=== PATIENT | female | born 1985 | race Two or more races ===

== ENCOUNTER 2024-09-20 12:17 | Outpatient (OUT) | payer OTHER, SELFPAY ==
[2024-09-20 14:30] LABS: BOX Test Reference Lab UNITY; BOX Test Sent Out UNITY BOX
== END 2024-09-20 12:18 | disposition home or self-care (01) ==
LOC: LAB 12:25
PROVIDERS: PCP Nurse Practitioner Family; Visit Provider Midwife
DX: Z36.0 Encounter for antenatal screening for chromosomal anomalies (principal)
CPT/HCPCS: 36415

== ENCOUNTER 2025-02-18 12:46 | Outpatient (OUT) | payer OTHER, SELFPAY ==
[2025-02-18 12:56] VITALS: BP 137/85; PULSE 95
== END 2025-02-18 14:25 | disposition home or self-care (01) ==
LOC: FBCO 12:48 → FBC 12:49
PROVIDERS: PCP Nurse Practitioner Family; Visit Provider Midwife
DX: O16.3 Unspecified maternal hypertension, third trimester (principal)
CPT/HCPCS: 59025

== ENCOUNTER 2025-03-09 16:50 | Inpatient (IN) | payer OTHER, SELFPAY ==
[2025-03-09] VITALS (15 sets, daily range): BP systolic 132–160; BP diastolic 71–109; PULSE 86–99; TEMP 36.2–36.7
[2025-03-09 17:47] LABS: Hematocrit 39.1 % (36.0-48.0); Hemoglobin 13.7 g/dL (12.0-16.0); Mean Corpuscular HGB Conc 35.0 g/dL (29.9-35.2); Mean Corpuscular Hemoglobin 32.5 pg (26.7-34.0); Mean Corpuscular Volume 92.9 fL (81.0-99.0); Platelet Count 209 10^3/uL (150-450); Red Blood Count 4.21 10^6/uL (4.20-5.40); White Blood Count 11.0 10^3/uL (4.0-11.0)
[2025-03-09] MEDS: DINOPROSTONE 10 MG VAG INSERT.ER VAGINAL (18:15)
[2025-03-09] MEDS: CALCIUM CARBONATE 500 MG (200MG ELEMENTAL) TAB CHEW PO (18:47)
[2025-03-09] MEDS: LABETALOL HCL 100 MG TABLET 200 MG PO (19:01)
[2025-03-09 19:36] LABS: Cannabinoid Screen Urine NEGATIVE (NEGATIVE); Methamphetamines Screen Urine NEGATIVE (NEGATIVE); Tricyclic Antidepressant Urine NEGATIVE (NEGATIVE)
[2025-03-09 19:40] LABS: Protein Creatinine Ratio Urine 0.06; Total Protein Urine Random <6.0 mg/dL (<=11.9)
[2025-03-09 21:03] LABS: Alanine Aminotransferase 16 U/L (14-59); Albumin Globulin Ratio 0.6; Albumin Level 2.3 g/dL (3.4-5.0); Alkaline Phosphatase 176 U/L (46-116); Anion Gap 12.6; Aspartate Amino Transferase 17 U/L (15-37); Blood Urea Nitrogen 6.0 mg/dL (7.0-18.0); Calcium 9.5 mg/dL (8.5-10.1); Carbon Dioxide 24.0 mmol/L (21.0-32.0); Chloride 104 mmol/L (98-107); Estimated GFR (African America >60 (>=60 mL/min/1.73m^2); Estimated GFR (Non-African Ame >60 (>=60 mL/min/1.73m^2); Globulin 4.1 g/dL; Glucose 92 mg/dL (74-106); Potassium 3.6 mmol/L (3.5-5.1); Sodium 137 mmol/L (136-145); Total Protein 6.4 g/dL (6.4-8.2)
[2025-03-09 21:04] LABS: Uric Acid 6.1 mg/dL (2.6-6.0)
[2025-03-09 21:08] LABS: Partial Thromboplastin Time 28.2 sec (22.3-36.2); Prothrombin Time 9.8 sec (9.0-11.6)
[2025-03-09 21:11] LABS: Fibrinogen 563 mg/dL (200-400); INR <0.93
[2025-03-09] MEDS: ZOLPIDEM TARTRATE 5 MG TABLET PO (22:17)
[2025-03-10] VITALS (37 sets, daily range): BP systolic 118–156; BP diastolic 68–102; PULSE 74–105; TEMP 36.1–37
[2025-03-10] MEDS: LABETALOL HCL 100 MG TABLET 200 MG PO ×3 (06:06→21:31)
[2025-03-10] MEDS: MISOPROSTOL 100 MCG TABLET 25 MCG VAGINAL ×3 (07:42→13:41)
[2025-03-10] MEDS: CLINDAMYCIN PHOSPHATE/D5W 900 MG/50 ML PREMIX 100 MG IV ×2 (12:50→21:08)
--- NOTE | 2025-03-10 13:06 | PC.NURSE ---
fhr 140s audibly while RN handholds us as pt rocks in chair, states feeling more of the cramping, rates 3-4
--- NOTE | 2025-03-10 19:22 | PC.NURSE ---
1825 Laureen Landon CNM calls in, plan of care to start pitocin at 1 mcg/min and increase by 1 mcg hourly after discussing with Dr Mc
[2025-03-10] MEDS: OXYTOCIN/0.9 % SODIUM CHLORIDE 10 UNITS/500 ML PLAST..BAG 3 UNIT IV (19:30)
[2025-03-11] VITALS (56 sets, daily range): BP systolic 89–181; BP diastolic 51–105; PULSE 61–139; TEMP 36.6–36.8
[2025-03-11] MEDS: CLINDAMYCIN PHOSPHATE/D5W 900 MG/50 ML PREMIX 100 MG IV ×2 (04:53→13:51)
[2025-03-11] MEDS: LABETALOL HCL 100 MG TABLET 200 MG PO ×3 (05:59→22:13)
--- NOTE | 2025-03-11 09:10 | PM.OBHP ---
OB - H&P: HPI History of Present Illness Chief complaint: INDUCE : 1 Para: 0 Gestational age based on last menstrual period: 37.2 Indications for induction: maternal hypertension (chronic hypertension ) History of Present Dating criteria: LMP confirmed by 1st trimester US care: good care Ultrasounds: normal 1st trimester US and normal mid trimester US complications comment: chronic hypertension Labs Blood type: O (+) positive Rubella: immune RPR/VDLR: nonreactive GBS status: positive HBsAG: negative Review of Systems ROS Status of ROS: 10 or more systems reviewed and unremarkable except as noted in history and below PFSH PFSH Social History Highest level of school completed/degree received: Master's degree Little interest or pleasure in doing things: not at all Feeling down, depressed, or hopeless: not at all Meds Home Medications and Allergies Home Medications ?Medication ?Instructions ?Recorded ?Confirmed ?Type labetalol 100 mg tablet 100 mg PO DAILY 03/09/25 03/09/25 History Allergies Allergy/AdvReac Type Severity Reaction Status Date / Time bacitracin (From Allergy Rash Verified 03/09/25 22:31 Polysporin(bacitracin base)) cephalexin (From Keflex) Allergy Rash Verified 03/09/25 22:31 colloidal oatmeal Allergy Rash Verified 03/09/25 22:31 hydrocortisone (From Allergy Rash Verified 03/09/25 22:31 Preparation H Hydrocortisone) Penicillins Allergy Rash Verified 03/09/25 22:31 polymyxin B (From Allergy Rash Verified 03/09/25 22:31 Polysporin(bacitracin base)) sulfamethoxazole (From Allergy Rash Verified 03/09/25 22:31 Bactrim) trimethoprim (From Bactrim) Allergy Rash Verified 03/09/25 22:31 Exam Constitutional Vital Signs, click to edit/add: Last Vital Signs Temp 98.6 F 03/10/25 19:30 Pulse 74 03/11/25 08:42 Resp 16 03/10/25 07:40 BP 138/71 03/11/25 08:42 O2 Del Method Room Air 03/09/25 18:25 Documenting provider has reviewed patient's vital signs: yes Common normals: no apparent distress General appearance: cooperative and comfortable Orientation/consciousness: Yes awake, Yes oriented to person, Yes oriented to place and Yes oriented to time HENMT Common normals: normocephalic Eye Common normals: EOMs intact bilaterally Neck & C-Spine Common normals: full ROM General: normal visual inspection Lymph Lymphatic: no lymphadenopathy noted Respiratory Common normals: normal respiratory effort, no retractions, no use of accessory muscles and clear to auscultation bilaterally Effort & inspection: able to speak in complete sentences Auscultation: clear to auscultation bilaterally Cardio Common normals: regular rate and regular rhythm Rate: regular rate Rhythm: regular rhythm GI Common normals: Normal to inspection, nondistended, normoactive bowel sounds present Inspection: normal to inspection Palpation: soft Back & Pelvis Common normals: no CVA tenderness Extremity Common normals: normal to inspection and full ROM Neuro Common normals: oriented x3 Sensorium/orientation: awake, alert, oriented to person, oriented to place and oriented to time Psych Common normals: mental status grossly normal, thought process normal, cooperative, affect normal, speech normal, activity/motor behavior normal, denies hallucinations, denies homicidal ideation and denies suicidal ideation Attitude: calm Activity/motor behavior: appropriate eye contact Speech: normal speech Thought process: normal thought process Thought content: normal thought content Attention/concentration: attention grossly intact Judgement: judgment good OB - A/P Assessment and Plan (1) Term delivered: (2) Chronic hypertension affecting : (3) Group B streptococcal bacteriuria: Plan . medical induction for chronic hypertension, cervidil and cytotec as needed Additional Plan Induction method: other (cytotec ) Plan: expectant management
[2025-03-11] MEDS: ROPIVACAINE HCL/PF 400 MG/200 ML PREMIX 6 MG EPIDURAL (10:55)
[2025-03-11] MEDS: OXYTOCIN/0.9 % SODIUM CHLORIDE 20 UNITS/1,000 ML PLAST..BAG 125 UNIT IV (16:07)
[2025-03-11] MEDS: LIDOCAINE VISCOUS 2% 15 ML SOLUTION 5 ML TOPICAL (16:07)
[2025-03-11] MEDS: LIDOCAINE HCL 1% 200 MG/20 ML MDV INJ (16:07)
--- NOTE | 2025-03-11 16:11 | PM.OBPRCVD ---
Procedure Procedure: with first degree repair Induction method: other (cervidil ) Delivery augmentation: rupture of membranes and pitocin Delivery monitor: external FHT Route of delivery: Episiotomy Description: none L&D Laceration Description: perineal - 1st degree Delivery repair: Vicryl Estimated blood loss (mL): 150 Anesthesia type: Epidural Disposition: no change Infant Delivery date: 03/11/25 Gender: female presentation: vertex Placental delivery description: Spontaneous heart rate - 1 minute: 100 bpm or Greater respiratory effort - 1 minute: Slow Respiration/Weak Cry muscle tone - 1 minute: Active Movement reflex response - 1 minute: Minimal Response color - 1 minute: Bluish Hands or Feet total score - 1 minute: 7 heart rate - 5 minute: 100 bpm or Greater respiratory effort - 5 minute: Spontaneous/Strong Cry muscle tone - 5 minute: Active Movement reflex response - 5 minute: Prompt Response color - 5 minute: Bluish Hands or Feet total score - 5 minute: 9
[2025-03-11] MEDS: IBUPROFEN 400 MG TABLET 800 MG PO (17:37)
[2025-03-11] MEDS: GLYCERIN/WITCH HAZEL PADS 1 PAD TOPICAL (20:53)
[2025-03-11] MEDS: BENZOCAINE/MENTHOL 85 GRAM SPRAY BOTTLE 1 APPLIC TOPICAL (20:53)
[2025-03-12] VITALS (7 sets, daily range): BP systolic 130–166; BP diastolic 79–107; PULSE 72–91; TEMP 36.4–36.8
[2025-03-12] MEDS: IBUPROFEN 400 MG TABLET 800 MG PO ×3 (03:06→18:02)
[2025-03-12] MEDS: LABETALOL HCL 100 MG TABLET 200 MG PO ×3 (05:54→22:42)
[2025-03-12] MEDS: DOCUSATE SODIUM 100 MG CAPSULE PO ×2 (08:20→22:42)
--- NOTE | 2025-03-12 14:27 | PM.OBPN ---
OB - PN: Subj Subjective Patient comments: no complaints, pain well controlled, tolerating diet and flatus present Coward status: doing well and other (having trouble with - not latching well) Exam Constitutional Vital Signs, click to edit/add: Last Vital Signs Temp 98.3 F 03/12/25 07:55 Pulse 82 03/12/25 07:56 Resp 17 03/12/25 08:02 BP 130/79 03/12/25 07:56 O2 Del Method Room Air 03/12/25 08:02 Documenting provider has reviewed patient's vital signs: yes Common normals: no apparent distress, oriented x3, healthy appearing, alert and well nourished General appearance: cooperative, comfortable, well kempt and well developed Nutritional appearance: obese Orientation/consciousness: Yes awake HENMT Common normals: normocephalic Eye Common normals: EOMs intact bilaterally Respiratory Common normals: normal respiratory effort and no retractions Cardio Common normals: regular rate Back & Pelvis Common normals: no CVA tenderness Pelvis: other (fundus firm and non-tender below umbilicus) Extremity Common normals: no calf tenderness General: edema (1+ pedal edema to mid anderson) Neuro Common normals: oriented x3 Sensorium/orientation: awake and alert Psych Common normals: mental status grossly normal Attitude: calm and engaged Urinary Catheter Management Urinary Catheter Management Urethral: Cath placed during this visit: yes, but has since been removed by the nurse Insertion date: 03/11/25 Insertion time: 11:10 Removal date: 03/11/25 Removal time: 14:30 OB - PN: A/P Assessment and Plan (1) Term delivered: Assessment and Plan: working on home tomorrow (2) Chronic hypertension affecting : Assessment and Plan: continue labetalol (3) Group B streptococcal bacteriuria: Assessment and Plan: treated in labor Time Spent with Patient Time: Total time spent is greater than 50% in coordination of care (as documented) at patient's floor/unit and/or counseling patient: Total time spent with greater than 50% in coordination of care (as documented) at patient's floor/unit and/or counseling patient: 25 - 35 minutes
[2025-03-13] MEDS: IBUPROFEN 400 MG TABLET 800 MG PO ×2 (01:37→10:45)
[2025-03-13] MEDS: LABETALOL HCL 100 MG TABLET 200 MG PO (07:14)
[2025-03-13 09:26] VITALS: BP 162/83; PULSE 77
[2025-03-13 10:38] VITALS: BP 122/81; PULSE 75; TEMP 36.7
[2025-03-13] MEDS: DOCUSATE SODIUM 100 MG CAPSULE PO (10:44)
--- NOTE | 2025-03-13 12:25 | P.DS_ITS ---
DS: Providers Provider Date of admission: 03/09/25 16:50 Primary care physician: Zulema Hall NP Admitting clinician: Chiki Beltran Attending physician on admission: Chiki Beltran Attending physician on discharge: LEXI GUERIN Discharging clinician: LEXI GUERIN Anticipated date of discharge: 03/13/25 DS: Diagnosis Discharge Diagnosis (1) Term delivered: Assessment and plan: delivered (2) Chronic hypertension affecting : Assessment and plan: Labetalol 200 mg tid RTC for apt in 1 week (3) Group B streptococcal bacteriuria: Assessment and plan: treated in labor OB - DS: Summary Hospital Course Hospital Course: Patient was induced and delivered via over a first degree laceration. Her BP needed an increase in her labetalol up to 200 mg tid prior to discharge. Baby was having difficulty latching on but was drinking out of a bottle at the time of discharge. Peripartum Data - Vaginal Delivery Laceration description: perineal - 1st degree Episiotomy Description: none Procedures: 39yo G1 now P1 with chronic hypertension in on labetalol was admitted and induced and delivered via over a first degree laceration which was repaired. Complications complications: perineal laceration Delivery method: spontaneous vaginal delivery Gender: female Discharge plan: home Status at Discharge Functional status at discharge: independent ambulation Overall status at discharge: patient is progressing back to baseline Time Spent with Patient Time attestation: Total time spent providing and/or coordinating discharge services: Time spent: less than 30 minutes Exam Constitutional Vital Signs, click to edit/add: Last Vital Signs Temp 98.1 F 03/13/25 10:38 Pulse 75 03/13/25 10:38 Resp 16 03/13/25 10:38 BP 122/81 03/13/25 10:38 O2 Del Method Room Air 03/13/25 10:38 Documenting provider has reviewed patient's vital signs: yes Common normals: no apparent distress, oriented x3, healthy appearing, alert and well nourished General appearance: cooperative, comfortable, well kempt and well developed Nutritional appearance: obese HENMT Common normals: normocephalic Eye Common normals: EOMs intact bilaterally General eye: normal appearance of both eyes Respiratory Common normals: normal respiratory effort and no retractions Cardio Common normals: regular rate GI Palpation: soft Common normals: no CVA tenderness Uterus palpation: other (fundus firm and non-tender below umbilicus) Extremity Common normals: no calf tenderness and no pedal edema Neuro Speech: speech normal Psych Common normals: thought process normal Appearance: grossly normal and well kempt Attitude: calm and engaged Activity/motor behavior: appropriate eye contact Speech: normal speech Attention/concentration: attention grossly intact Discharge Plan Discharge Disposition: Home, Self-Care Discharge Medications: New ibuprofen 400 mg Tablet 800 mg PO Q8H Qty: 50 0RF Rx Instructions: 2 tablets every 8 hours as needed for pain labetalol 100 mg Tablet 200 mg PO TID Qty: 60 11RF Discontinued labetalol 100 mg tablet 100 mg PO DAILY Activity: increase activity as tolerated Diet: regular diet Print Language: Marshallese Forms: Portal Instructions Discharge location: to home
== END 2025-03-13 13:35 | disposition home or self-care (01) | DRG 807 ==
PROVIDERS: Admitting Provider Midwife; PCP Nurse Practitioner Family; Visit Provider Obstetrics & Gynecology
DX: O10.02 Pre-existing essential hypertension complicating childbirth (principal); Z37.0 Single live birth; O70.0 First degree perineal laceration during delivery; Z3A.37 37 weeks gestation of pregnancy; Z79.899 Other long term (current) drug therapy; O99.214 Obesity complicating childbirth; E66.01 Morbid (severe) obesity due to excess calories; O99.824 Streptococcus B carrier state complicating childbirth
CPT/HCPCS: 36415; 51702; 59050; 59410; 80053; 80307; 82570; 84156; 84550; 85027; 85384; 85610; 85730; 86850; 86900; 86901; J0736; J2300; J2405; J2795

== ENCOUNTER 2025-03-18 08:41 | Outpatient (OUT) | payer OTHER, SELFPAY ==
--- OUTSIDE RECORDS SUMMARY | 2025-03-04 13:30 | XMS_ITS | Encounter Summary ---
Author Organization [facility] Address [address] [facility] [place] [address] Care Team Providers Care Forest Pathology Associate Professor Name Role Phone Stacey Pulido MD Primary Care Provider [phone] Zulema Hall NP Unavailable [phone] Encounter Details DateTypeDepartmentCare Team (Latest Contact Info)Blwydeilnmx13/21/2025 2:30 PM EDTRoutine [facility] [address] [place] [address] Kaitlin Landon, ADAMARIS [address] [place], [place] [id number] Social History Tobacco UseTypesPacks/DayYears UsedDateSmoking Tobacco: NeverSmokeless Tobacco: NeverAlcohol UseStandard Drinks/WeekCommentsNot Currently0 (1 standard drink = 0.6 oz pure alcohol)1 cups of soda per [id number] Health LiteracyAnswerDate RecordedHow often do you need to have someone help you when you read instructions, pamphlets, or other written material from your doctor or pharmacy? Never05/13/2024Humiliation, Afraid, Rape, and Kick questionnaireAnswerDate RecordedWithin the last year, have you been afraid of your partner or ex-partner?No11/10/2022Within the last year, have you been humiliated or emotionally abused in other ways by your partner or ex-partner?No11/10/2022 Within the last year, have you been kicked, hit, slapped, or otherwise physically hurt by your partner or ex-partner?No11/10/2022Within the last year, have you been raped or forced to have any kind of sexual activity by your part ner or ex-partner?No11/10/2022Social Connection and Isolation PanelAnswerDate RecordedIn a typical week, how many times do you talk on the phone with family, friends, or neighbors?More than three times a week05/13/2024How often do you get together with friends or relatives?Once a week05/13/2024How often do you attend shinto or taoist services?More than 4 times per year05/13/2024o you belong to any clubs or organizations such as shinto groups, unions, fraternal or athletic groups, or school groups?No05/13/2024How often do you attend meetings of the clubs or organizations you belong to?Never05/13/2024re you , , , , never , or living with a partner? 05/13/2024UDIT-CAnswerDate RecordedQ1: How often do you have a drink containing alcohol?2-4 times a month05/13/2024Q2: How many drinks containing alcohol do you have on a typical day when you are drinking?3 or Q3: How often do you have six or more drinks on one occasion?Less than zijupfp7605/13/2024Overall Financial Resource Strain (CARDIA)AnswerDate RecordedHow hard is it for you to pay for the very basics like food, housing, medical care, and heating?Not very hard05/13/2024HQ-2AnswerDate RecordedPatient Health Questionnaire-2 Score0 11/11/2024[facility] [place] of Occupational Health - Occupational Stress QuestionnaireAnswerDate RecordedDo you feel stress - tense, restless, nervous, or anxious, or unable to sleep at night because yourmind is troubled all the time - these days?Only a tvhcrq2605/13/2024Exercise Vital SignAnswerDate Recorded On average, how many days per week do you engage in moderate to strenuous exercise (like a brisk walk)?1 day05/13/2024On average, how many minutes do you engage in exercise at this level?30 min05/13/2024Hunger Vital SignAnswerDate RecordedWithin the past 12 months, you worried that your food would run out before you got the money to buymore.Never true05/13/2024Within the past 12 months, the food you bought just didn't last and you didn't have money to get more.Never true05/13/2024RAPARE - TransportationAnswerDate RecordedIn the past 12 months, has lack of transportation kept you from medical appointments or from getting medications?No05/13/2024In the past 12 months, has lack of transportation kept you from meetings, work, or from getting things needed for daily living?No05/13/2024Housing Stability Vital SignAnswerDate RecordedIn the last 12 months, was there a time when you were not able to pay the mortgage or rent on time?No11/10/2022In the last 12 months, how many places have you lived?1 11/10/2022In the last 12 months, was there a time when you did not have a steady place to sleep or slept in [facility] (including now)?No11/10/2022Housing Stability Vital SignAnswerDate RecordedIn the last 12 months, was there a time when you were not able to pay the mortgage or rent on time?No05/13/2024In the past 12 months, how many times have you moved where you were living? At any time in the past 12 months, were you homeless or living in a retirement (including now)?No05/13/2024CommentsYesSex and Gender InformationValue Date RecordedSex Assigned at WgheeZlukpi01/23/2023 8:35 AM EDTLegal SexFemale 07/27/2022 6:45 PM EDTGender HjakbhqjHjfbfx07/23/2023 8:35 AM EDTSexual OrientationNot on filedocumented as of this encounter Last Filed Vital Signs Vital SignReadingTime TakenCommentsBlood Nxeninqx042/69267/ 2:51 PM EDT recheck 130/82Pulse--Temperature--Respiratory Rate--Oxygen Saturation--Inhaled Oxygen Concentration--Qzmoac932 kg (246 lb)03/04/2025 2:51 PM EDTHeight--Body Mass Index40.011 4:23 PM ESTdocumented in this encounter Plan of Treatment DateTypeDepartmentCare Team (Latest Contact Info)Sczuncckjxb90/30/2025 12:00 PM ESTOffice Visit [facility] Medicine [address] [facility] [place] [address] Zulema Hall NP [address] [facility] [place] [address] documented as of this encounter Visit Diagnoses Not on filedocumented in this encounter Care Teams Team MemberRelationshipSpecialtyStart DateEnd Date Stacey Pulido MD [address] [facility] [place], [place] [phone] PCP - GeneralFamily Medicine11/10/22 Zulema Hall NP [address] [facility] [place], [place] [phone] Nurse PractitionerFamily Medicine11/10/22documented as of this encounter
--- OUTSIDE RECORDS SUMMARY | 2025-03-06 14:30 | XMS_ITS | Encounter Summary ---
Author Organization [facility] Address [address] [facility] [place] [address] Care Team Providers Care Surveyor Mine Name Role Phone Stacey Pulido MD Primary Care Provider [phone] Zulema Hall NP Unavailable [phone] Encounter Details DateTypeDepartmentCare Team (Latest Contact Info)Hhrxtnrtuqn09/23/2025 3:30 PM EDTRoutine [facility] [address] [place] [address] Kaitlin Landon, MARILEE [address] [place], [place] [phone] NST (non-stress test) reactive ([facility]) (Primary Dx); Benign hypertension; Encounter for care of first , third trimester ([facility]) Social History Tobacco UseTypesPacks/DayYears UsedDateSmoking Tobacco: NeverSmokeless Tobacco: NeverAlcohol UseStandard Drinks/WeekCommentsNot Currently0 (1 standard drink = 0.6 oz pure alcohol)1 cups of soda per [id number] Health LiteracyAnswerDate RecordedHow often do you need [...] relatives?Once a week05/13/2024How often do you attend religious or judaism services?More than 4 times per year05/13/2024o you belong to any clubs or organizations such as religious groups, unions, fraCodealike or athletic groups, or school groups?No05/13/2024How often [...] or more drinks on one occasion?Less than aflvdsm1805/13/2024Overall Financial Resource Strain (CARDIA)AnswerDate RecordedHow hard is it for you to pay for the very basics like food, housing, medical care, and heating?Not very hard05/13/2024HQ-2AnswerDate RecordedPatient Health Questionnaire-2 Score0 11/11/2024[facility] [place] of Occupational Health - Occupational Stress QuestionnaireAnswerDate RecordedDo you feel stress - tense, restless, nervous, or anxious, or unable to sleep at night because yourmind is troubled all the time - these days?Only a dbrtju9205/13/2024Exercise Vital SignAnswerDate Recorded On average, how many [...] steady place to sleep or slept in [facility] (including now)?No11/10/2022Housing Stability Vital SignAnswerDate RecordedIn the [...] and Gender InformationValue Date RecordedSex Assigned at DweclIpnwdh34/23/2023 8:35 AM EDTLegal SexFemale 07/27/2022 6:45 PM EDTGender UpitygvsLhxleh97/23/2023 8:35 AM EDTSexual OrientationNot on filedocumented as of this encounter Last Filed Vital Signs Vital SignReadingTime TakenCommentsBlood Muqqnfla319/9010 3:35 PM EDT Pulse--Temperature--Respiratory Rate--Oxygen Saturation--Inhaled Oxygen Concentration--Ookiex241 kg (252 lb)03/06/2025 3:35 PM EDTHeight--Body Mass Index40.9805/13/2024 4:23 PM ESTdocumented in this encounter Progress Notes * Kaitlin Landon CNM - 03/06/2025 3:30 PM EDT Subjective No chief complaint on file. Ritu Tavarez is a 39 y.o. at 36w4d with a working estimated date of delivery of 03/30/2025, by Last Menstrual Period who presents for a routine visit. She denies vaginal bleeding, leakage of fluid, decreased movements, or contractions. OB History Para Term AB Living 1 0 0 0 0 0 SAB IAB Ectopic Multiple Live Births 0 0 0 0 0 # Outcome Date GA Lbr Stanislaw/2nd Weight Sex Type Anes PTL Lv 1 Current Her is complicated by: AMA Objective Physical Exam Weight: 252 lb Expected Total Weight Gain: 11 lb-19 lb Pregravid BMI: 39.03 BP: 138/90 Urine protein-negative Urine glucose-negative Assessment/Plan Diagnoses and all orders for this visit: NST (non-stress test) reactive ([facility]) Benign hypertension Encounter for care of first , third trimester ([facility]) Continue vitamin. Labs reviewed. GBS taken. Expected mode of delivery Follow up in 1 week for a routine visit. documented in this encounter Plan of Treatment DateTypeDepartmentCare Team (Latest Contact Info)Msrrgvmnlnz48/30/2025 12:00 PM ESTOffice Visit [facility] [place] [facility] [address] [place] [phone] Zulema Hall NP [address] [place] [address] documented as of this encounter Visit Diagnoses Diagnosis NST (non-stress test) reactive ([facility])- Primary state, incidental Benign hypertension Essential hypertension, benign Encounter for care of first , third trimester ([facility]) documented in this encounter Care Teams Team MemberRelationshipSpecialtyStart DateEnd Date Stacey Pulido MD [address] [place], [place] [phone] PCP - GeneralFamily Medicine11/10/22 Zulema Hall NP [address] [place], [place] [phone] Nurse PractitionerFamily Medicine11/10/22documented as of this encounter
--- OUTSIDE RECORDS SUMMARY | 2025-03-07 13:30 | XMS_ITS | Encounter Summary ---
Author Organization [facility] Address [address] [place] [address] Care Team Providers Care Kettle Chipper Name Role Phone Stacey Pulido MD Primary Care Provider [phone] Zulema Hall ROSE GROWER Unavailable [phone] Encounter Details DateTypeDepartmentCare Team (Latest Contact Info)Wjzbhsxtepn10/24/2025 2:30 PM EDTAncillary Procedure [facility] [address] [place] [address] Benign hypertension; Advanced maternal age, 1st , third trimester ([facility]) Social History Tobacco UseTypesPacks/DayYears UsedDateSmoking Tobacco: NeverSmokeless Tobacco: NeverAlcohol UseStandard Drinks/WeekCommentsNot Currently0 (1 standard drink = 0.6 oz pure alcohol)1 cups of soda per [id number] Health LiteracyAnswerDate RecordedHow often do you need [...] relatives?Once a week05/13/2024How often do you attend hindu or taoist services?More than 4 times per year05/13/2024o you belong to any clubs or organizations such as hindu groups, unions, fraPersonalis or athletic groups, or school groups?No05/13/2024How often [...] or more drinks on one occasion?Less than iyvktcl1905/13/2024Overall Financial Resource Strain (CARDIA)AnswerDate RecordedHow hard is it for you to pay for the very basics like food, housing, medical care, and heating?Not very hard05/13/2024HQ-2AnswerDate RecordedPatient Health Questionnaire-2 Score0 11/11/2024[facility] [place] of Occupational Health - Occupational Stress QuestionnaireAnswerDate RecordedDo you feel stress - tense, restless, nervous, or anxious, or unable to sleep at night because yourmind is troubled all the time - these days?Only a tfemyc8905/13/2024Exercise Vital SignAnswerDate Recorded On average, how many [...] steady place to sleep or slept in [facility] (including now)?No11/10/2022Housing Stability Vital SignAnswerDate RecordedIn the last 12 months, was there a time when you were not able to pay the mortgage or rent on time?No05/13/2024In the past 12 months, how many times have you moved where you were living? At any time in the past 12 months, were you homeless or living in a correction (including now)?No05/13/2024CommentsYesSex and Gender InformationValue Date RecordedSex Assigned at LgdxpUxwlhj37/23/2023 8:35 AM EDTLegal SexFemale 07/27/2022 6:45 PM EDTGender FyugqyukLtewkk33/23/2023 8:35 AM EDTSexual OrientationNot on filedocumented as of this encounter Plan of Treatment DateTypeDepartmentCare Team (Latest Contact Info)Rdvybxqtaso54/30/2025 12:00 PM ESTOffice Visit [facility] [address] [place] [address] Zulema Hall, ROSS [address] [place] [address] documented as of this encounter Procedures Procedure NamePriorityDate/TimeAssociated DiagnosisCommentsUS OB FOLLOW UP TRANSABDOMINAL RMCZKIQQFtfjgda61/24/2025 3:15 PM EDT Benign hypertension Advanced maternal age, 1st , third trimester ([facility] [facility]) documented in this encounter Results * US OB follow up transabdominal approach (03/07/2025 3:15 PM EDT)Anatomical RegionLateralityModalityBodyUltrasoundSpecimen (Source)Anatomical Location / LateralityCollection Method / VolumeCollection TimeReceived Time03/07/2025 4:37 PM EDT Impressions 03/10/2025 7:45 AM EDT Single, live intrauterine , current sonographic age of 37 weeks and 0 days, with an estimated date of delivery of March 28, 2025 (prior BEN March 25, 2025) * ??Estimated Weight (g) by Percentile is based upon an accurate estimated age based onlast menstrual period. ?? TRANSCRIBED BY: ? ELECTRONICALLY SIGNED BY: Francois Hirsch MD Narrative 03/10/2025 7:45 AM EDT FINDINGS: Comparison August 22, 2024. A single, live intrauterine is present with normal cardiac rate of 151 beats per minute. Normal activity and amniotic fluid volume. Amniotic fluid index is 15 cm. ??Morphology is grossly normal. The cervix is long and closed, 5.7 cm. ??The placenta is posterior, not associatedwith the cervical os. ??The current sonographic age is ??weeks and ??days, based on the following measurements: ?BPD ? 9.1 cm (36 weeks, 5 days) ?Head Circumference ?32.8 cm (37 weeks, 2 days) ?Abdominal Circumference ?32.7 cm (36 weeks, 5 days) ?Femur Length ?7.2 cm (37 weeks, 0 days) ?Presentation ? Cephalic ?Placenta ? Posterior Grade II ? These measurements result in an estimated date of delivery of March 28, 2025. ??The current estimated weight is 3033 grams (6 pounds, 11 ounces). ?? Procedure Note Francois Hirsch MD - 03/10/2025 FINDINGS: Comparison August 22, 2024. A single, live intrauterine is present with normal cardiacrate of 151 beats per minute. Normal activity and amniotic fluidvolume. Amniotic fluid index is 15 cm. Morphology is grossly normal. Thecervix is long and closed, 5.7 cm. The placenta is posterior, notassociated with the cervical os. The current sonographic age is weeksand days, based on the following measurements: BPD 9.1 cm (36 weeks, 5 days) Head Circumference 32.8 cm (37 weeks, 2 days) Abdominal Circumference 32.7 cm (36 weeks, 5 days) Femur Length 7.2 cm (37 weeks, 0 days) Presentation Cephalic Placenta Posterior GradeII These measurements result in an estimated date of delivery of March. The current estimated weight is 3033 grams (6 pounds, 11ounces). IMPRESSION: Single, live intrauterine , current sonographic age of 37 weeksand 0 days, with an estimated date of delivery of March 28, 2025 (priorEDD March 25, 2025) * Estimated Weight (g) by Percentile is based upon an accurateestimated age based on last menstrual period. TRANSCRIBED BY: ELECTRONICALLY SIGNED BY: Francois Hirsch MD Authorizing ProviderResult TypeResult StatusValefrank Landon [facility] US PROCEDURESFinal Result documented in this encounter Visit Diagnoses Diagnosis Benign hypertension Essential hypertension, benign Advanced maternal age, 1st , third trimester ([facility]) documented in this encounter Care Teams Team MemberRelationshipSpecialtyStart DateEnd Stacey Pulido MD [address] [place], [place] [phone] [facility] - [facility]11/10/22 Zulema Hall NP [address] [place], [place] [phone] Nurse PractitionerB[facility] Medicine11/10/22documented as of this encounter
--- OUTSIDE RECORDS SUMMARY | 2025-03-18 08:49 | XMS_ITS | Encounter Summary ---
Author Organization [facility] Address [address] [facility] [place] [address] Care Team Providers Care Cook Candy Name Role Phone Stacey Pulido MD Primary Care Provider [phone] Zulema Hall NP Unavailable [phone] Encounter Details DateTypeDepartmentCare Team (Latest Contact Info)Poabbkvityu65/21/2025Bamboo flowsheet [facility] [address] [place] [address] Kaitlin Landon, CNM [address] [place], [place] [id number] Social History Tobacco UseTypesPacks/DayYears UsedDateSmoking Tobacco: NeverSmokeless Tobacco: NeverAlcohol UseStandard Drinks/WeekCommentsNot Currently0 (1 standard drink = 0.6 oz pure alcohol)1 cups of soda per [id number] Health LiteracyAnswerDate RecordedHow often do you need [...] relatives?Once a week05/13/2024How often do you attend mandaen or latter day services?More than 4 times per year05/13/2024o you belong to any clubs or organizations such as mandaen groups, unions, fraternal or athletic groups, or [...] or more drinks on one occasion?Less than vpwjxnc0805/13/2024Overall Financial Resource Strain (CARDIA)AnswerDate RecordedHow hard is it for you to pay for the very basics like food, housing, medical care, and heating?Not very hard05/13/2024HQ-2AnswerDate RecordedPatient Health Questionnaire-2 Score0 11/11/2024[facility] [place] [facility] - Occupational Stress QuestionnaireAnswerDate RecordedDo you feel stress - tense, restless, nervous, or anxious, or unable to sleep at night because yourmind is troubled all the time - these days?Only a demiqj2105/13/2024Exercise Vital SignAnswerDate Recorded On average, how many [...] steady place to sleep or slept in [facility] (including now)?No11/10/2022Housing Stability Vital SignAnswerDate RecordedIn the last 12 months, was there a time when you were not able to pay the mortgage or rent on time?No05/13/2024In the past 12 months, how many times have you moved where you were living? At any time in the past 12 months, were you homeless or living in a senior care (including now)?No05/13/2024CommentsYesSex and Gender InformationValue Date RecordedSex Assigned at DlfkwCaacmc57/23/2023 8:35 AM EDTLegal SexFemale 07/27/2022 6:45 PM EDTGender NtsoiykvAlespl39/23/2023 8:35 AM EDTSexual OrientationNot on filedocumented as of this encounter Plan of Treatment DateTypeDepartmentCare Team (Latest Contact Info)Xlbbksfsgqy79/30/2025 12:00 PM ESTOffice Visit [facility] [address] [place] [address] Zulema Hall NP [address] [facility] [place] [address] documented as of this encounter Visit Diagnoses Not on filedocumented in this encounter Care Teams Team MemberRelationshipSpecialtyStart DateEnd Date Stacey Pulido MD [address] [place], [place] [id number] PCP - GeneralFamily Medicine11/10/22 Zulema Hall NP [address] [place], [place] [id number] Nurse PractitionerFamily Medicine11/10/22documented as of this encounter
--- OUTSIDE RECORDS SUMMARY | 2025-03-18 08:49 | XMS_ITS | Encounter Summary ---
Author Organization [facility] Healthcare Address [address] [place] [address] Care Team Providers Care Oracle Ascp Consultant Name Role Phone Stacey Pulido MD Primary Care Provider Zulema Hall NP Unavailable [phone] Encounter Details DateTypeDepartmentCare Team (Latest Contact Info)Ezhgynpkyhh68/31/2025Patient Outreach [facility] [address] [place] [id number] Leonela Kirkland, SLOANE [address] [place] [address] Social History Tobacco UseTypesPacks/DayYears UsedDateSmoking Tobacco: NeverSmokeless Tobacco: NeverAlcohol UseStandard Drinks/WeekCommentsNot Currently0 (1 standard drink = 0.6 oz pure alcohol)1 cups of soda per [id number] Health LiteracyAnswerDate RecordedHow often do you need [...] relatives?Once a week05/13/2024How often do you attend anabaptist or judaism services?More than 4 times per year05/13/2024o you belong to any clubs or organizations such as anabaptist groups, unions, fraImcompany or athletic groups, or school groups?No05/13/2024How often [...] or more drinks on one occasion?Less than sftibom5605/13/2024Overall Financial Resource Strain (CARDIA)AnswerDate RecordedHow hard is it for you to pay for the very basics like food, housing, medical care, and heating?Not very hard05/13/2024HQ-2AnswerDate RecordedPatient Health Questionnaire-2 Score0 03/14/2025[facility] [place] [facility] - Occupational Stress QuestionnaireAnswerDate RecordedDo you feel stress - tense, restless, nervous, or anxious, or unable to sleep at night because yourmind is troubled all the time - these days?Only a knnwwo6405/13/2024Exercise Vital SignAnswerDate Recorded On average, how many [...] steady place to sleep or slept in [facility] (including now)?No11/10/2022Housing Stability Vital SignAnswerDate RecordedIn the last 12 months, was there a time when you were not able to pay the mortgage or rent on time?No05/13/2024In the past 12 months, how many times have you moved where you were living? At any time in the past 12 months, were you homeless or living in a senior care (including now)?No05/13/2024CommentsNoSex and Gender InformationValue Date RecordedSex Assigned at VbnvbTwpfue28/23/2023 8:35 AM EDTLegal SexFemale 07/27/2022 6:45 PM EDTGender NshtdwyjNqlefp46/23/2023 8:35 AM EDTSexual OrientationNot on filedocumented as of this encounter Functional Status * Over the past 2 weeks, how often have you been bothered by any of the following problems?QuestionAnswerDate of AssessmentAuthorLittle interest or pleasure in doing thingsNot at all10/ 9:58 AM Leonela Su LPN Feeling down, depressed, or hopelessNot at all03/14/2025 9:58 AM Leonela Su LPNPatient Health Questionnaire-2 [id number] 9:58 AM Leonela uS LPN documented as of this encounter Progress Notes * Leonela Kirkland LPN - 03/14/2025 9:55 AM EDT Images from the original note were not included. Flowsheet Row Patient Outreach from 03/14/2025 in [facility] with Leonela Kirkland LPN Hospital Information ED, Hospital or Fpc Facility Discharge? Hospital Patient has been contacted within two business days of discharge Yes Diagnosis Discharge Date 03/13/25 Discharge Hospital [facility] Engagement Call Start Time 0950 Admission Date 03/09/25 Medications Discharge medications reviewed and reconciled from hospital? Yes Is the patient having any side effects they believe may be caused by any medication additions or changes? No Does the patient have all medications ordered at discharge? Yes Nursing Interventions No intervention needed Is the patient taking all medications as directed (includes completed medication regime)? Yes Nursing Interventions Nurse provided patient education Appointments Does the patient have a primary care provider? Yes Nursing Interventions Verified appointment date/time/provider Does the patient have any upcoming specialty appointments? No [Encouraged PPV] Nursing Interventions Advised to schedule with specialist Self Management Patient Teaching Does the patient have access to their discharge instructions? Yes Nursing Interventions Reviewed instructions with patient What is the patient's perception of their health status since discharge? Improving Is the patient/caregiver able to teach back the hierarchy of who to call/visit for symptoms/problems? PCP, Specialist, Home Health nurse, Urgent Care, ED, 911 Yes Wrap Up Call End Time 1000 MOHSEN Complete. Call to pt. Pt reports pain is controlled with Ibuprofen 400mg Q8PRN. Pt describes bleeding as light lochia and denies any clots. Bowels are regular with Colace. Pt denies any depression or difficulty coping at this time. Pt is currently formula feeding baby and baby is tolerating well. Baby sees PEDs today, 03/14/2025. Pt encouraged to call for PPV. Pt report she has all baby itemsneeded. Pt denies any questions, concerns or needs today. documented in this encounter Plan of Treatment DateTypeDepartmentCare Team (Latest Contact Info)Tlxfllckcxl91/30/2025 12:00 PM ESTOffice Visit [facility] [address] [facility] [place] [address] Zulema Hall NP [address] [facility] [place] [address] documented as of this encounter Visit Diagnoses Diagnosis (normal spontaneous vaginal delivery) ([facility] Primary Normal delivery documented in this encounter Care Teams Team MemberRelationshipSpecialtyStart DateEnd Date Stacey Pulido MD [address] [facility] [place], [place] [phone] PCP - GeneralFamily Medicine11/10/22 Zulema Hall NP [address] [facility] [place], [place] [phone] Nurse PractitionerFamily Medicine11/10/22documented as of this encounter
--- OUTSIDE RECORDS SUMMARY | 2025-03-18 08:49 | XMS_ITS | Clinical Summary ---
Author Organization ApnaPaisa tem Address [id number] [address] [place] [address] Care Team Providers Care Fws Faculty Assistant Name Role Phone Beckham, Maxmariah [facility] Medicine Primary Care Provider Allergies Active AllergyReactionsCriticalityNoted KqlcMvjgvkpdStgazbzcAmxuCvn57/17/2024 Sulfamethoxazole-KvcgbijtmhbnIyerPll48/17/2024at Hefmeo3011/29/2023ockroach 11/29/2023og Ynzpbf3411/29/20235221Dtpdq-Sjbzx-Hzejqiq-Ynyiuzcrg94/17/2024Grass Ieckmi7111/29/20236493RquowvecixMrmgIaz54/17/8392ImyeoirpijeBcxmQfe85/17/2024Sheep Derived (Ovine)11/29/2023Shellfish OdlrydoHnttUxe56/17/2024Tree NutRashLow 11/29/2023 Medications MedicationSigDispense QuantityRefillsLast FilledStart DateEnd DateStatus cetirizine (ZyrTEC) 10 mg tablet Take 1 tablet (10 mg total) by mouth in the morning.Active fluticasone propionate (FLONASE) 50 mcg/actuation nasal spray Administer 1 spray into each nostril in the morning.Active no115/iron/folic acid ( 19 ORAL) Take by mouth.Active labetaloL (NORMODYNE) 100 mg tablet Take 2 tablets (200 mg total) by mouth in the morning and 2 tablets (200 mg total) before bedtime.Active Active Problems Patient Care Coordination No te Formatting of this note migh t be different from the original. CARE COORDINATION DIAGNOSIS: Cannot clear heart CFDNA - 22q - No result Referring OB: Harpreet Landon CNM MFM: Josef Maternal Hx: AMA CHTN MSAFP: cfDNA: Low risk XX 22q - No result Carrier: Carrier - Neg 08/16 Amnio: []Genetic Counselling: [x]Peds Cardiology: 01/23/25 a female fetus who today demonstrated normal intracardiac anatomy with normal myocardial function. []Peds Urology: []Peds Ortho: []Peds Surgery: []Peds Neurology: []Peds Neurosurgery: []Peds Craniofacial: []NICU Consult: []Palliative Care Consult: []SGM: []Life [facility]: [][place]ie: [] MRI: []Nationwide: [][facility]: []UH: []MOHSEN CHS: Delivery Recommendation: Deliver 38-[address] Garcia consult letter 02/21/25 [] Term at local hospital [] Term at [facility] Surveillance Plan: [x] F/U Survey in _4_ weeks Sched 02/04/25 Dr. Bahena VV in 8 weeks [x] Growth q _4_ weeks at OB [] Dopplers q __ weeks [] Echo at __ weeks [] Cervical length q __ weeks [] TTTS q __ weeks [x] Wkly NST/IZABEL starting at _32_ weeks [x] 2x/wk NST/IZABEL starting at _36_ weeks ProblemNoted DateDiagnosed DateEssential hypertension affecting in second hofbpfhki09/07/2025dvanced maternal age in multigravida, second aksamiwpn06/07/2025Estimated Date of TdoptvhiHurkqlvaKng53/16/2025ased on last menstrual period of 06/23/2024 Encounters DateTypeDepartmentCare WxyaRuewlxqqbmb87/10/2025 9:45 AM EDTTelemedicine Maternal- Medicine at [facility] [address] [place] [address] Emily Garcia MD Chronic hypertension affecting (Primary Dx); Obesity affecting , antepartum, unspecified obesity type; Multigravida of advanced maternal age in third trimester; 34 weeks gestation of begitzfpa16/08/9675Bsuqzm58/23/2025 12:28 PM EDT - 02/04/2025 11:59 PM EDTHospital Encounter [facility] - Ultrasound [address] [place] [phone] Advanced maternal age in multigravida, second trimester; Essential hypertension affecting in second trimester Discharge Disposition: Home02/02/20256648Gcqkub17/11/2025 10:30 AM EDTOffice Visit [facility] [address] [place] [phone] Navin Chavez MD Abnormal ultrasonic finding on screening of mother, antepartum 01/23/2025 10:18 AM EDT - 01/23/2025 11:59 PM EDTHospital Encounter [facility] [place] - [place] [address] [place] [phone] Anomaly of heart of fetus affecting , antepartum, single or unspecified fetus Discharge Disposition: Home01/21/20254815Jagfvm38/03/2025Orders Only [facility] [address] [place] [phone] Navin Chavez MD Anomaly of heart of fetus affecting , antepartum, single or unspecified fetus (Primary Dx)01/03/20253121Dvhfuk53/18/2025Orders Only Maternal- Medicine at [facility] [address] [place] [phone] Inge Myles repairer shoe sticks maternal age in multigravida, second trimester (Primary Dx); Essential hypertension affecting in second zetzeiesj28/15/2025 1:20 PM EDT - 12/27/2024 11:59 PM EDTHospital Encounter [facility] - [facility] US Imaging [address] [place] [address] Essential hypertension affecting in second trimester; Advanced maternal age in multigravida, second trimester Discharge Disposition: Home12/27/2024Orders Only Maternal- Medicine at [facility] [address] [place] [phone] Serenity Benavides, RD Abnormal ultrasonic finding on screening of mother, antepartum (Primary Dx)12/27/2024Telephone Maternal- Medicine at [facility] [address] [place] [phone] Ritu Harvey 12/25/2024Travelfrom Last 3 Months Social History Tobacco UseTypesPacks/DayYears UsedDateSmoking Tobacco: NeverSmokeless Tobacco: Never Tobacco Cessation:Counseling Given: Not Answered Alcohol UseStandard Drinks/WeekCommentsNot Currently0 (1 standard drink = 0.6 oz pure alcohol)ChildcareAnswerDate QjhnbqqkIeghctwybPiyxgvd88/12/2019Employment AnswerDate FjrblvawOzpdwiodgnBuqfnjk16/12/2019Hunger ScreeningAnswerDate RecordedWithin the past 12 months we worried whether our food would run out before we got money to buy more.Never True11/18/2024Within the past 12 months the food we bought just didn't last and we didn't have money to get more.Never True11/18/2024Estimated Date of AoaghdfaBipxosxwIut73/16/2025Based on last menstrual period of 06/23/2024Sex and Gender InformationValueDate RecordedSex Assigned at BirthNot on fileLegal XpgYxtynt67/06/2015 11:37 AM EDTGender IdentityNot on fileSexual OrientationNot on file Last Filed Vital Signs Vital SignReadingTime TakenCommentsBlood Owapabpv041/8909 10:31 AM EDT Ryjyd344101/23/2025 10:31 AM KEOYmupfzvhxuw63.9 ??C (98.4 ??F)11/29/2023 1:37 PM EDTRespiratory Ffvm128711/29/2023 1:37 PM EDTOxygen Ekdzxlqnui993%01/23/2025 10:26 AM EDTInhaled Oxygen Concentration--Wbzihx875.5 kg (239 lb 3.2 oz)01/23/2025 10:26 AM PYSKxivkp388.1 cm (5' 5 )01/23/2025 10:26 AM EDTBody Mass Index39.8 01/23/2025 10:26 AM EDT Plan of Treatment Health MaintenanceDue DateLast DoneCommentsDepression Zijvbuuoa24/21/2000Adult BMI Follow Up Plan08/02/2005Pap Smear11/29/COVID-19 Vaccine ( season)/07/2020, 08/29/2020, 08/06/2020Influenza Vaccine /Adult BMI Cosdavwlk59/03/2025Tobacco Screening /04/2025DTaP,Tdap and Td Vaccines (8 - Td or Tdap)11/27/2030 11/27/2020, 12/13/2010, 06/15/2000, Additional history existsRSV ( or age 60+ yrs) (No Doses Required)Completed Medical Devices Not on file Procedures Procedure NamePriorityDate/TimeAssociated DiagnosisCommentsUS MF OB FOLLOW-UP, 1 QFSHDXhyymfp35/23/2025 2:04 PM EDT Advanced maternal age in multigravida, second trimester Essential hypertension affecting in second trimester ECHO 2D WITH COLOR MZNCZlkxcwz24/11/2025 1:03 PM EDT Anomaly of heart of fetus affecting , antepartum, single or unspecified fetus US MF OB FOLLOW-UP, 1 QZUMBGqcrvnw21/15/2025 3:40 PM EDT Essential hypertension affecting in second trimester Advanced maternal age in multigravida, second trimester from Last 3 Months Results * US MF OB FOLLOW-UP, 1 FETUS (02/04/2025 2:04 PM EDT) Only the most recent of2 resultswithin the time period is included. Anatomical RegionLateralityModalityOB-GYNUltrasoundSpecimen (Source)Anatomical Location / LateralityCollection Method / VolumeCollection TimeReceived Time 02/04/2025 12:58 PM EDT Narrative 02/04/2025 6:02 PM EDT NAME: ??GIO WRIGHT : 1985 SEX: F Accession Number: [id number] ORDERING PHYSICIAN: SHINE BAHENA REFERRING PHYSICIAN: KEMAR LANDON Coding Procedures ? 27425: Ultrasound, uterus, real time with image documentation, follow up,transabdominal ? approach per fetus Indication Obesity in , Advanced maternal age, Chronic hypertension affecting , Abnormal finding on screening of mother (inconclusive Cell Free for Q22), Screening for follow-up survey. History OB History ? 1. Para 0 ? L6T3O5H1 Current Cell free DNA ?No call- 22Q analysis Maternal Assessment Physical Exam ??Height 165 cm, 5 ft 5 in. Initial weight 108 kg, 238 lb. Initial BMI 39.61 kg/m?? Method Transabdominal ultrasound examination. View: Suboptimal view: limited by maternal body habitus. Franco . Number of fetuses: 1 Dating LMP on: ?06/23/2024 GA by LMP ?32 w + 2 d BEN by LMP: ?03/30/2025 Previous Ultrasound on: ?08/22/2024 Type of prior assessment: ?GA GA at prior assessment date ?9 w + 2 d GA by previous U/S ? 33 w + 0 d BEN by previous Ultrasound: ?03/25/2025 Ultrasound examination on: ? 02/04/2025 GA by U/S based upon: ??AC, BPD, Femur, HC GA by U/S ?33 w + 0 d BEN by U/S: ?03/25/2025 Assigned: ?based on the LMP, selected on 11/18/2024 Assigned GA (weeks days) ? 32 w + 2 d Assigned BEN: ??03/30/2025 General Evaluation Cardiac activity Present. FHR 135 bpm. Presentation: cephalic Placenta: Placental site: posterior, left, previously documented away from cervical os Umbilical cord: Cord vessels: 3 vessel cord. Insertion site: not examined Amniotic fluid: Amount of AF: normal amount. MVP 7.5 cm Biometry Standard BPD ?83.9 mm 33w 5d 83% Hadlock OFD ?104.1 mm ?34w 0d 85% Genaro HC ? 297.0 mm ?32w 6d 27% Hadlock Cerebellum tr ??42.7 mm 33w 4d 67% Hill AC ? 283.4 mm ?32w 3d 52% Hadlock Femur ??64.0 mm 33w 0d 59% Hadlock Humerus ?53.6 mm 31w 1d 24% Genaro HC / AC ?1.05 EFW ?2,041 g ??54% Hadlock EFW (lb) ? 4 lb EFW (oz) ? 8 oz EFW by: ?Hadlock (IEV-[id number]-FL) Extended Tibia ??56.7 mm 33w 2d 82% Genaro Field Support Specialist ? 4.7 mm CM ? 8.0 mm ?? 70% Nicolaides Head / Face / Neck Cephalic index 0.81 ? 59% Nicolaides Nasal bone: ?not examined Extremities / Bony Struc FL / BPD ? 0.76 FL / HC ?0.22 FL / AC ?0.23 Other Structures FHR ?135 bpm Anatomy The following structures appear normal: Head/Neck: Cranium. Lateral ventricles. Cavum septi pellucidi. Cerebellum. Cisterna magna. Parenchyma. ? Neck. Heart/Thorax: Situs. Cardiac rhythm. ? Right lung. Left lung. Abdomen: Stomach. Kidneys. Bladder. Extremities/Skeleton: Right hand. Skeleton The following structures could not be adequately visualized: Heart / Thorax 4-chamber view. Cardiac position. Cardiac axis. Cardiac size. ? Diaphragm. Spine: Cervical spine. Thoracic spine. Lumbar spine. Sacral spine. The following structures could not be examined: Face: Profile. Nasal bone. Heart / Thorax 3-vessel view. Bicaval view. Interventricular septum. Great vessels. The following structures were documented previously: Head / Neck ?Choroid plexus. Midline falx. Vermis. Face ?? Lips. Nose. Maxilla. Mandible. Orbits. Heart / Thorax RVOT view. LVOT view. 8-jyluqy-lkdzeas view. Aortic arch view. Ductal arch view. Abdomen ?Abdom. wall. Cord insertion. Right renal artery. Left renal artery. Genitals. Extremities / ??Right upper arm. Right forearm. Left upper arm. Left forearm. Left hand. Right upper leg. Right lower ? leg. Right foot. Left upper leg. Left lower leg. Left foot. Maternal Structures Uterus Visualized Cervix Suboptimal Right Ovary ?Not visualized Left Ovary ? Not visualized Cul de Sac ? Suboptimal Impression Single viable intrauterine with appropriate interval growth. EFW measures at the 54%, AC measures at the 52%. Amniotic fluid MVP measures 7.5 cm. Recommendations Please see [facility] recommendations from prior clinical and/or ultrasound report documentation. Please refer to separate report for echocardiogram from pediatric cardiology. anatomic survey is incomplete due to late gestational age and suboptimal visualization. Patient is not scheduled to return for additional ultrasound. Please reschedule for specific concerns or indications. Subsequent follow up or other follow up as clinically determined by primary OB provider unless otherwise specified by [facility]. Results forwarded to ordering provider so they can follow up with the patient as necessary. Procedure Note Shine Bahena MD - 02/04/2025 NAME: GIO WRIGHT : 1985 SEX: F Accession Number: [id number] ORDERING PHYSICIAN: SHINE BAHENA REFERRING PHYSICIAN: KEMAR LANDON Coding Procedures [id number]: Ultrasound, uterus, real time with image documentation, follow up, transabdominal approach per fetus Indication Obesity in , Advanced maternal age, Chronic hypertensionaffecting , Abnormal finding on screening of mother (inconclusive Cell Free for Q22), Screening for follow-up survey. History OB History 1. Para 0 [id number] Current Cell free DNA No call- 22Q analysis Maternal Assessment Physical Exam Height 165 cm, 5 ft 5 in. Initial weight 108 kg, 238 lb.Initial BMI 39.61 kg/m?? Method Transabdominal ultrasound examination. View: Suboptimal view: limited bymaternal body habitus. Franco . Number of fetuses: 1 Dating LMP on: 06/23/2024 GA by LMP 32 w + 2 d BEN by LMP: 03/30/2025 Previous Ultrasound on: 08/22/2024 Type of prior assessment: GA GA at prior assessment date 9 w + 2 d GA by previous U/S 33 w + 0 d BEN by previous Ultrasound: 03/25/2025 Ultrasound examination on: 02/04/2025 GA by U/S based upon: AC, BPD, Femur, HC GA by U/S 33 w + 0 d BEN by U/S: 03/25/2025 Assigned: based on the LMP, selected on 11/18/2024 Assigned GA (weeks days) 32 w + 2 d Assigned BEN: 03/30/2025 General Evaluation Cardiac activity Present. FHR 135 bpm. Presentation: cephalic Placenta: Placental site: posterior, left, previously documented away from cervical os Umbilical cord: Cord vessels: 3 vessel cord. Insertion site: notexamined Amniotic fluid: Amount of AF: normal amount. MVP 7.5 cm Biometry Standard BPD 83.9 mm 33w 5d 83% Hadlock OFD 104.1 mm 34w 0d 85% Genaro HC 297.0 mm 32w 6d 27% Hadlock Cerebellum tr 42.7 mm 33w 4d 67% Hill AC 283.4 mm 32w 3d 52% Hadlock Femur 64.0 mm 33w 0d 59% Hadlock Humerus 53.6 mm 31w 1d 24% Genaro HC / AC 1.05 EFW 2,041 g 54% Hadlock EFW (lb) 4 lb EFW (oz) 8 oz EFW by: Hadlock ([id number]-IR-JW-FL) Extended Tibia 56.7 mm 33w 2d 82% Genaro Field Support Specialist 4.7 mm CM 8.0 mm 70% Nicolaides Head / Face / Neck Cephalic index 0.81 59% Nicolaides Nasal bone: not examined Extremities / Bony Struc FL / BPD 0.76 FL / HC 0.22 FL / AC 0.23 Other Structures FHR 135 bpm Anatomy The following structures appear normal: Head/Neck: Cranium. Lateral ventricles. Cavum septi pellucidi. Cerebellum. Cisterna magna. Parenchyma. Neck. Heart/Thorax: Situs. Cardiac rhythm. Right lung. Left lung. Abdomen: Stomach. Kidneys. Bladder. Extremities/Skeleton: Right hand. Skeleton The following structures could not be adequately visualized: Heart / Thorax 4-chamber view. Cardiac position. Cardiac axis. Cardiacsize. Diaphragm. Spine: Cervical spine. Thoracic spine. Lumbar spine. Sacral spine. The following structures could not be examined: Face: Profile. Nasal bone. Heart / Thorax 3-vessel view. Bicaval view. Interventricular septum. Great vessels. The following structures were documented previously: Head / Neck Choroid plexus. Midline falx. Vermis. Face Lips. Nose. Maxilla. Mandible. Orbits. Heart / Thorax RVOT view. LVOT view. 1-yguzmu-owbngql view. Aortic archview. Ductal arch view. Abdomen Abdom. wall. Cord insertion. Right renal artery. Left renalartery. Genitals. Extremities / Right upper arm. Right forearm. Left upper arm. Leftforearm. Left hand. Right upper leg. Right lower leg. Right foot. Left upper leg. Left lower leg. Left foot. Maternal Structures Uterus Visualized Cervix Suboptimal Right Ovary Not visualized Left Ovary Not visualized Cul de Sac Suboptimal Impression Single viable intrauterine with appropriate interval growth. EFW measures at the 54%, AC measures at the 52%. Amniotic fluid MVP measures 7.5 cm. Recommendations Please see [facility] recommendations from prior clinical and/or ultrasoundreport documentation. Please refer to separate report for echocardiogram from pediatric cardiology. anatomic survey is incomplete due to late gestational age andsuboptimal visualization. Patient is not scheduled to return for additional ultrasound. Please reschedule for specific concerns or indications. Subsequent follow up or other follow up as clinically determined byprimary OB provider unless otherwise specified by M. Results forwarded to ordering provider so they can follow up with thepatient as necessary. Authorizing ProviderResult TypeResult StatusShien Bahena MDIMG US ORDERABLESFinal Result * echo 2D W/ color flow (01/23/2025 1:03 PM EDT)Anatomical Region LateralityModalityChestN/AUltrasoundSpecimen (Source)Anatomical Location / LateralityCollection Method / VolumeCollection TimeReceived Time Narrative 01/23/2025 5:17 PM EDT Gestational age 30weeks 4 days ?Normal intracardiac anaotomy with normal cardiac function ?Recommend re-evaluation ??post natally ?Technically difficult study Procedure Info: ?? Echocardiography Report. Image quality is suboptimal. Technically difficult study Procedures: ? Echo Doppler Color Flow echo echo Doppler study Situs and Relations: ? There is atrial situs solitus, atrioventricular concordance (D-looped ventricles) normally related great arteries (S,D,S). There is levocardia. The heart is located in the left chest. The cardiac apex points to the left. Systemic Veins: ?? There are normal systemic venous connections, with the superior and inferior Vena Cava returning to the right atrium. Right Atrium: ? The right atrium has normal size and appearance. Tricuspid Valve: ? The tricuspid valve appears normal. Tricuspid valve annulus measures 11.8mm ; Z-score 1.4 Right Ventricle: ? The right ventricle has a normal size, wall thickness, and systolic function. Pulmonary valve and Artery The pulmonary valve, main and branch pulmonary arteries are normal. ?? Pulmonary valve annulus measures 6.04mm ; Z-score of 0.48.The ??left pulmonary artery was 4.28mm ;z score 1.62. The right pulmonary artery ?? measured 4.7mm; z score 1.78. Septal Defects: There is a patent foramen ovale (PFO). There is right -to-left shunting across the patent foramen ovale. The interventricular septum appears intact with no evidence of ventricular level shunting. Pulmonary Veins: The right upper pulmonary vein drains normally to the left atrium. The left Lower pulmonary vein drains normally to the left atrium. Left Atrium: ?? The left atrium has normal size and appearance. Mitral Valve: The Mitral valve appears normal. Mitral valve annulus measures 10.1mm with a Z-score of 1.08 Left Ventricle: The left ventricle has normal has normal size, wall thickness, and systolic function. Aortic Valve: The left ventricular outflow tract and aortic valve are normal. ?? Aortic valve measures 5.4mm ; Z-score 1.48 Aorta and Ductus: Normal left sided aortic arch with no coarctation or dilation. There is a left-sided patent ductus arteriosus. There is pulmonary artery to descending aorta shunt across the patent ductus arteriosus. Rhythm: Normal sinus rhythm with an average heart rate of 141 beats per minute, normal mechanical ND interval of 138 milliseconds Other: No pericardial effusion Miscellaneous: Small septal defects, minor valve abnormalities and post- development of coarctation may not be evident during cardiac examination. Summary Normal intracardiac anatomy and function Normal atrioventricular ??coupling with normal heart rate Normal cardiothoracic ??index PFO with right to left shunting PDA with right to left shunting Follow-up: Postnatally Study Details A echocardiogram was performed. Authorizing ProviderResult TypeResult StatusClaudkenneth Chavez [facility] ORDERABLESFinal Result from Last 3 Months Insurance MemberSubscriberPlan / Payer (Effective 2023-Present)Name:Ritu Tavarez Relation to Subscriber:SelfName:Ritu Tavarez Payer ID:Not on file Type:Not on file Address: [place] [id number] MemberSubscriberPlan / Payer (Effective 2023-Present)Name:Ritu Tavarez Relation to Subscriber:SelfName:Ritu Tavarez Payer ID:Not on file Type:Not on file Address: [place] [id number] Care Teams Team MemberRelationshipSpecialtyStart DateEnd Date Damien [facility] [address] [facility] [address] [place] [address] PCP - GeneralFamily Medicine11/29/23
--- OUTSIDE RECORDS SUMMARY | 2025-03-18 08:49 | XMS_ITS ---
Author Organization [facility] Healthcare Address [address] [place] [address] Care Team Providers Care Salesperson Shoes Name Role Phone Satcey Pulido MD Primary Care Provider [phone] Zulema Hall NP Unavailable [phone] Inpatient Discharge Transitional Care Management (TCM) Status:Closed (Closed) Start date:03/13/2025 Enrollment date:03/14/2025 Enrollment reason:Identified using hospital discharge data End date:03/14/2025 Close reason:Not eligible Overview Patient discharged from [facility] on 03/13. Please contact for hospital MOHSEN and schedule follow-up appointment within 7-14 days. Continued Care and Services Coordination
--- OUTSIDE RECORDS SUMMARY | 2025-03-18 08:49 | XMS_ITS | Encounter Summary ---
Author Organization [facility] Address [address] [facility] [place] [address] Care Team Providers Care System Development Manager Name Role Phone Stacey Pulido MD Primary Care Provider [phone] Zulema Hall SAP BASIS ADMINISTRATOR Unavailable [phone] Encounter Details DateTypeDepartmentCare Team (Latest Contact Info)Vubvhegvlxq58/27/2025Results Follow-Up [facility] [address] [place] [address] Zulema Hall NP [address] [place], [place] [id number] [facility] CMP (CMP) (FOR REMOTE [facility] USE), ALL URIC ACID, MHPT FIBRINOGEN Social History Tobacco UseTypesPacks/DayYears UsedDateSmoking Tobacco: NeverSmokeless Tobacco: NeverAlcohol UseStandard Drinks/WeekCommentsNot Currently0 (1 standard drink = 0.6 oz pure alcohol)1 cups of soda per [id number] Health LiteracyAnswerDate RecordedHow often do you need [...] relatives?Once a week05/13/2024How often do you attend episcopalian or scientology services?More than 4 times per year05/13/2024o you belong to any clubs or organizations such as episcopalian groups, unions, fraternal or athletic groups, or [...] or more drinks on one occasion?Less than bfefojz7705/13/2024Overall Financial Resource Strain (CARDIA)AnswerDate RecordedHow hard is it for you to pay for the very basics like food, housing, medical care, and heating?Not very hard05/13/2024HQ-2AnswerDate RecordedPatient Health Questionnaire-2 Score0 03/14/2025[facility] [place] of Occupational Health - Occupational Stress QuestionnaireAnswerDate RecordedDo you feel stress - tense, restless, nervous, or anxious, or unable to sleep at night because yourmind is troubled all the time - these days?Only a uqhjtw1105/13/2024Exercise Vital SignAnswerDate Recorded On average, how many [...] steady place to sleep or slept in [facility] (including now)?No11/10/2022Housing Stability Vital SignAnswerDate RecordedIn the last 12 months, was there a time when you were not able to pay the mortgage or rent on time?No05/13/2024In the past 12 months, how many times have you moved where you were living? At any time in the past 12 months, were you homeless or living in a longterm (including now)?No05/13/2024CommentsYesSex and Gender InformationValue Date RecordedSex Assigned at TvdqiXpttji28/23/2023 8:35 AM EDTLegal SexFemale 07/27/2022 6:45 PM EDTGender JazttzdzNzfpsv62/23/2023 8:35 AM EDTSexual OrientationNot on filedocumented as of this encounter Plan of Treatment DateTypeDepartmentCare Team (Latest Contact Info)Mlhadcfeqpd31/30/2025 12:00 PM ESTOffice Visit [facility] [address] [facility] [place] [address] Zulema Hall NP [address] [facility] [place] [address] documented as of this encounter Visit Diagnoses Not on filedocumented in this encounter Care Teams Team MemberRelationshipSpecialtyStart DateEnd Date Stacey Pulido MD [address] [facility] [place] [id number] PCP - GeneralFamily Medicine11/10/22 Zulema Hall NP [address] [place] [id number] Nurse PractitionerFamily Medicine11/10/22documented as of this encounter
--- OUTSIDE RECORDS SUMMARY | 2025-03-18 08:49 | XMS_ITS | Encounter Summary ---
Author Organization [facility] Address [address] [place] [address] Care Team Providers Care Cash Accountant Name Role Phone Stacey Pulido MD Primary Care Provider [phone] Zulema Hall NP Unavailable [phone] Encounter Details DateTypeDepartmentCare Team (Latest Contact Info)Vvzpuemevvr27/26/2025Clinisync Result Encounter [facility] Department Unsolicited Kaitlin Landon, CNM [address], [place] [id number] Social History Tobacco UseTypesPacks/DayYears UsedDateSmoking Tobacco: NeverSmokeless Tobacco: NeverAlcohol UseStandard Drinks/WeekCommentsNot Currently0 (1 standard drink = 0.6 oz pure alcohol)1 cups of soda per [id number] Health LiteracyAnswerDate RecordedHow often do you need [...] relatives?Once a week05/13/2024How often do you attend scientology or hinduism services?More than 4 times per year05/13/2024o you belong to any clubs or organizations such as scientology groups, unions, fraNevolution or athletic groups, or school groups?No05/13/2024How often [...] or more drinks on one occasion?Less than wjxposc0705/13/2024Overall Financial Resource Strain (CARDIA)AnswerDate RecordedHow hard is it for you to pay for the very basics like food, housing, medical care, and heating?Not very hard05/13/2024HQ-2AnswerDate RecordedPatient Health Questionnaire-2 Score0 11/11/2024[facility] [place] of Occupational Health - Occupational Stress QuestionnaireAnswerDate RecordedDo you feel stress - tense, restless, nervous, or anxious, or unable to sleep at night because yourmind is troubled all the time - these days?Only a gredsm9405/13/2024Exercise Vital SignAnswerDate Recorded On average, how many [...] steady place to sleep or slept in [facility] (including now)?No11/10/2022Housing Stability Vital SignAnswerDate RecordedIn the last 12 months, was there a time when you were not able to pay the mortgage or rent on time?No05/13/2024In the past 12 months, how many times have you moved where you were living? At any time in the past 12 months, were you homeless or living in a fdc (including now)?No05/13/2024CommentsYesSex and Gender InformationValue Date RecordedSex Assigned at HppprTcdokj40/23/2023 8:35 AM EDTLegal SexFemale 07/27/2022 6:45 PM EDTGender UeorouwsMrhltw42/23/2023 8:35 AM EDTSexual OrientationNot on filedocumented as of this encounter Plan of Treatment DateTypeDepartmentCare Team (Latest Contact Info)Gokdrpugeaw10/30/2025 12:00 PM ESTOffice Visit [facility] [address] [place] [address] Zulema Hall, ROSS [address] [place] [address] documented as of this encounter Procedures Procedure NamePriorityDate/TimeAssociated DiagnosisCommentsSRMCOH PROTHROMBIN TIME INR W/O WBDKMkhutzd64/26/2025 8:30 PM EDT MHPT CXFZJHNVZJTondqmg17/26/2025 8:30 PM EDT [facility] CMP (CMP) (FOR REMOTE [facility] USE)Zkveexo6003/09/2025 8:30 PM EDT [facility] IMNIBtbijsm10/26/2025 8:30 PM EDT ALL URIC LDXEOiwovnf53/26/2025 8:30 PM EDT [facility] URINE T PROTEIN CREAT VZBPUHceirtf56/26/2025 6:05 PM EDT [facility] DRUG SCREEN RAPID (URINE)Wgxktiv4403/09/2025 6:05 PM EDT [facility] CBC WITH PLATELET NO NIJRLGFQKSQAFogsese12/26/2025 5:40 PM EDT documented in this encounter Results * (ABNORMAL) MHPT FIBRINOGEN (03/09/2025 8:30 PM EDT)ComponentValueRef RangeTest MethodAnalysis TimePerformed AtPathologist MkvdwganzHATQMRAJRH937(H)200 - 400 mg/dLTBHSpecimen (Source)Anatomical Location / LateralityCollection Method / VolumeCollection TimeReceived Time03/09/2025 8:30 PM EDT1 8:46 PM EDT Narrative [facility] - 03/09/2025 9:11 PM EDT Authorizing ProviderResult TypeResult StatusValerie Orion Landon [facility]CFinal ResultPerforming OrganizationAddressCity/State/ZIP CodePhone Number CLINIS[facility]NC TB * [facility] APTT (03/09/2025 8:30 PM EDT)ComponentValueRef RangeTest MethodAnalysis TimePerformed AtPathologist SignaturePARTIAL THROMBOPLASTIN TIME28.222.3 - 36.2 secTBHSpecimen (Source)Anatomical Location / LateralityCollection Method / VolumeCollection TimeReceived Time03/09/2025 8:30 PM EDT1 8:46 PM EDT Narrative [facility] - 03/09/2025 9:11 PM EDT Authorizing ProviderResult TypeResult StatusKaitlin Landon [facility]ISYNCFinal ResultPerforming OrganizationAddressCity/State/ZIP CodePhone Number [facility] * SRMCOH PROTHROMBIN TIME INR W/O COUM (03/09/2025 8:30 PM EDT)ComponentValueRef RangeTest MethodAnalysis TimePerformed AtPathologist SignaturePROTHROMBIN TIME 9.89.0 - 11.6 secTBHTBH INR<0.93TBHComment: DESIRED INR: 2.0-3.0 CONDITIONS NOT LISTED BELOW 2.5-3.5 FOR PROSTHETIC HEART VALVE REPLACEMENT 2.5-3.5 RECURRENT THROMBOSIS Specimen (Source)Anatomical Location / LateralityCollection Method / Volume Collection TimeReceived Time03/09/2025 8:30 PM EDT1 8:46 PM EDT Narrative [facility] - 03/09/2025 9:11 PM EDT Authorizing ProviderResult TypeResult StatusSpring Valleyfrank Landon [facility]ITALISYNCAl[facility] Centeral ResultPerforming OrganizationAddressCity/State/ZIP CodePhone Number [facility] * (ABNORMAL) ALL URIC ACID (03/09/2025 8:30 PM EDT)ComponentValueRef RangeTest MethodAnalysis TimePerformed AtPathologist SignatureURIC ACID6.1(H)2.6 - 6.0 mg/dLTBHSpecimen (Source)Anatomical Location / LateralityCollection Method / VolumeCollection TimeReceived Time03/09/2025 8:30 PM EDT1 8:46 PM EDT Narrative [facility] - 03/09/2025 9:04 PM EDT Authorizing ProviderResult TypeResult StatusSpring Valleyrigopi aLndon [facility] HOSPITALISYNCFinal ResultPerforming OrganizationAddressCity/State/ZIP CodePhone Number CLINISYNC TBH * (ABNORMAL) [facility] CMP (CMP) (FOR REMOTE [facility] USE) (03/09/2025 8:30 PM EDT) ComponentValueRef RangeTest MethodAnalysis TimePerformed AtPathologist DumxbzfeiIKFWUJ112095 - 145 mmol/LTBHPOTASSIUM3.63.5 - 5.1 mmol/LTBHCHLORIDE 54473 - 107 mmol/LTBHCARBON PDIBYJP54.021.0 - 32.0 mmol/LTBHANION GAP12.6TBH RFHFUOF8644 - 106 mg/dLTBHBLOOD UREA NITROGEN6.0(L)7.0 - 18.0 mg/dLTBH CREATININE0.570.55 - 1.02 mg/dLTBHTBH EGFR-AF MONTENEGRIN>60>=60 mL/min/1.73m 2 TBHTBH EGFR-NON AF MONTENEGRIN>60>=60 mL/min/1.73m 2TBHBUN CREATININE RATIO10.5 TBHCALCIUM9.58.5 - 10.1 mg/dLTBHBILIRUBIN TOTAL0.20.2 - 1.0 mg/dLTBHASPARTATE AMINO FYHVARRAZKX2238 - 37 U/LTBHALANINE KVBMRVBFQDLZDNYS2814 - 59 U/LTBH ALKALINE MQTTLMBRVIW157(H)46 - 116 U/LTBHTOTAL PROTEIN6.46.4 - 8.2 g/dLTBH ALBUMIN LEVEL2.3(L)3.4 - 5.0 g/dLTBHGLOBULIN4.1g/dLTBHALBUMIN GLOBULIN RATIO 0.6TBHSpecimen (Source)Anatomical Location / LateralityCollection Method / VolumeCollection TimeReceived Time03/09/2025 8:30 PM EDT1 8:46 PM EDT Narrative [facility] - 03/09/2025 9:04 PM EDT Authorizing ProviderResult TypeResult StatusValefrank Landon [facility]INISYNCFinal ResultPerforming OrganizationAddressCity/State/ZIP CodePhone Number BRADNC TBH * TBH URINE T PROTEIN CREAT RATIO (03/09/2025 6:05 PM EDT)ComponentValueRef RangeTest MethodAnalysis TimePerformed AtPathologist SignatureTOTAL PROTEIN URINE RANDOM<6.0<=11.9 mg/dLTBHCREATININE URINE JZUDZQ031.7420.00 - 300.00 mg/dLTBHPROTEIN CREATININE RATIO URINE0.06TBHSpecimen (Source)Anatomical Location / LateralityCollection Method / VolumeCollection TimeReceived Time 03/09/2025 6:05 PM EDT1 7:22 PM EDT Narrative CLIN[facility] - 03/09/2025 7:45 PM EDT Authorizing ProviderResult TypeResult StatusValerie Orion Landon [facility]ISYNCFinal ResultPerforming OrganizationAddressCity/State/ZIP CodePhone Number CLINISYAZ TBH * [facility] DRUG SCREEN RAPID (URINE) (03/09/2025 6:05 PM EDT)ComponentValueRef Range Test MethodAnalysis TimePerformed AtPathologist SignatureCANNABINOID SCREEN URINENEGATIVENEGATIVETBHPHENCYCLIDINE SCREEN URINENEGATIVENEGATIVETBHCOCAINE SCREEN URINENEGATIVENEGATIVETBHMETHAMPHETAMINES SCREEN URINENEGATIVENEGATIVE TBHOPIATE SCREEN URINENEGATIVENEGATIVETBHAMPHETAMINE SCREEN URINENEGATIVE NEGATIVETBHBENZODIAZEPINES SCREEN URINENEGATIVENEGATIVETBHTRICYCLIC ANTIDEPRESSANT URINENEGATIVENEGATIVETBHMETHADONE SCREEN URINENEGATIVENEGATIVE TBHBARBITURATES SCREEN URINENEGATIVENEGATIVETBHOXYCODONE SCREEN URINENEGATIVE NEGATIVETBHBUPRENORPHINE SCREEN URINENEGATIVENEGATIVETBHComment: DRUG CLASS TEST SYSTEM CUT-OFF CONCENTRATIONS ARE FOLLOWS: AMP (Amphetamine): 500 ng/mL BAR (Barbiturates): 200 ng/mL BZO (Benzodiazepines): 150 ng/mL BUP (Buprenorphine): 10 ng/mL ELIANA (Cocaine): 150 ng/mL mAMP (Methamphetamine): 500 ng/mL MTD (Methadone): 200 ng/mL OPI (Opiates): 100 ng/mL OXY (Oxycodone): 100 ng/mL PCP (Phencyclidine): 25 ng/mL THC (Cannabinoids): 50 ng/mL TCA (Trycyclic Antidepressants): 300 ng/mL Specimen (Source)Anatomical Location / LateralityCollection Method / Volume Collection TimeReceived Time03/09/2025 6:05 PM EDT1 7:22 PM EDT Narrative [facility]IN[facility]YNC - 03/09/2025 7:36 PM EDT Authorizing ProviderResult TypeResult StatusValefrank Landon [facility]ISYNCFinal ResultPerforming OrganizationAddressCity/State/ZIP CodePhone Number MICKI JARVIS * [facility] CBC WITH PLATELET NO DIFFERENTIAL (03/09/2025 5:40 PM EDT)ComponentValue Ref RangeTest MethodAnalysis TimePerformed AtPathologist SignatureTBH WBC11.0 4.0 - 11.0 10 3/uLTBHTBH RBC4.214.20 - 5.40 10 6/uLTBHTBH HGB13.712.0 - 16.0 g/dLTBHTBH HCT39.136.0 - 48.0 %TBHTBH MCV92.981.0 - 99.0 fLTBHTBH MCH32.526.7 - 34.0 pgTBHTBH MCHC35.029.9 - 35.2 g/dLTBHTBH RDW13.211.0 - 15.0 %TBHTBH PLT 878079 - 450 10 3/uLTBHTBH MPV12.29.5 - 13.5 fLTBHSpecimen (Source)Anatomical Location / LateralityCollection Method / VolumeCollection TimeReceived Time 03/09/2025 5:40 PM EDT1 5:48 PM EDT Narrative CLINISYNC - 03/09/2025 5:48 PM EDT Authorizing ProviderResult TypeResult StatusValefrank Landon [facility]ISYNCFinal ResultPerforming OrganizationAddressCity/State/ZIP CodePhone Number MICKI JARVIS documented in this encounter Visit Diagnoses Not on filedocumented in this encounter Care Teams Team MemberRelationshipSpecialtyStart DateEnd Date Stacey Pulido MD [address] [place] [place] [address] PCP - GeneralFamily Medicine11/10/22 Zulema Hall NP [address] [place], [place] [id number] Nurse PractitionerFamily Medicine11/10/22documented as of this encounter
--- OUTSIDE RECORDS SUMMARY | 2025-03-18 08:49 | XMS_ITS | Encounter Summary ---
Author Organization [facility] Address [address] [facility] [place] [address] Care Team Providers Care Coin Machine Servicer Repairer Name Role Phone Stacey Pulido MD Primary Care Provider [phone] Zulema Hall NP Unavailable [phone] Encounter Details DateTypeDepartmentCare Team (Latest Contact Info)Ukywczqtlyc36/23/2025amboo flowsheet [facility] OBGYN [address] [place] [address] Kaitlin Landon, CNM [address] [place], [place] [id number] Social History Tobacco UseTypesPacks/DayYears UsedDateSmoking Tobacco: NeverSmokeless Tobacco: NeverAlcohol UseStandard Drinks/WeekCommentsNot Currently0 (1 standard drink = 0.6 oz pure alcohol)1 cups of soda per [id number] Health LiteracyAnswerDate RecordedHow often do you need [...] relatives?Once a week05/13/2024How often do you attend uatsdin or evangelical services?More than 4 times per year05/13/2024o you belong to any clubs or organizations such as uatsdin groups, unions, fraternal or athletic groups, or [...] or more drinks on one occasion?Less than kuulbfa7705/13/2024Overall Financial Resource Strain (CARDIA)AnswerDate RecordedHow hard is it for you to pay for the very basics like food, housing, medical care, and heating?Not very hard05/13/2024HQ-2AnswerDate RecordedPatient Health Questionnaire-2 Score0 11/11/2024[facility] [place] of Occupational Health - Occupational Stress QuestionnaireAnswerDate RecordedDo you feel stress - tense, restless, nervous, or anxious, or unable to sleep at night because yourmind is troubled all the time - these days?Only a xwqpvz5905/13/2024Exercise Vital SignAnswerDate Recorded On average, how many [...] steady place to sleep or slept in [facility] (including now)?No11/10/2022Housing Stability Vital SignAnswerDate RecordedIn the last 12 months, was there a time when you were not able to pay the mortgage or rent on time?No05/13/2024In the past 12 months, how many times have you moved where you were living? At any time in the past 12 months, were you homeless or living in a half-way (including now)?No05/13/2024CommentsYesSex and Gender InformationValue Date RecordedSex Assigned at EajtlYnoado26/23/2023 8:35 AM EDTLegal SexFemale 07/27/2022 6:45 PM EDTGender WtqokerqYwttzo55/23/2023 8:35 AM EDTSexual OrientationNot on filedocumented as of this encounter Plan of Treatment DateTypeDepartmentCare Team (Latest Contact Info)Wcehndivner40/30/2025 12:00 PM ESTOffice Visit [facility] [address] [place] [address] Zulema Hall NP [address] [facility] [place] [address] documented as of this encounter Visit Diagnoses Not on filedocumented in this encounter Care Teams Team MemberRelationshipSpecialtyStart DateEnd Date Stacey Pulido MD [address] [place], [place] [id number] PCP - GeneralFamily Medicine11/10/22 Zulema Hall NP [address] [place], [place] [address] Nurse PractitionerFamily Medicine11/10/22documented as of this encounter
--- OUTSIDE RECORDS SUMMARY | 2025-03-18 08:50 | XMS_ITS | Encounter Summary ---
Author Organization [facility] Address [address] [place] [address] Care Team Providers Care Etcher Hand Name Role Phone Stacey Pulido MD Primary Care Provider [phone] Zulema Hall NP Unavailable [phone] Encounter Details DateTypeDepartmentCare Team (Latest Contact Info)Ialskxsrfyt20/24/2025Travel Social History Tobacco UseTypesPacks/DayYears UsedDateSmoking Tobacco: NeverSmokeless Tobacco: NeverAlcohol UseStandard Drinks/WeekCommentsNot Currently0 (1 standard drink = 0.6 oz pure alcohol)1 cups of soda per [id number] Health LiteracyAnswerDate RecordedHow often do you need [...] relatives?Once a week05/13/2024How often do you attend adventism or judaism services?More than 4 times per year05/13/2024o you belong to any clubs or organizations such as adventism groups, unions, fraternal or athletic groups, or [...] or more drinks on one occasion?Less than tijyhbq3705/13/2024Overall Financial Resource Strain (CARDIA)AnswerDate RecordedHow hard is it for you to pay for the very basics like food, housing, medical care, and heating?Not very hard05/13/2024HQ-2AnswerDate RecordedPatient Health Questionnaire-2 Score0 11/11/2024[facility] [place] of Occupational Health - Occupational Stress QuestionnaireAnswerDate RecordedDo you feel stress - tense, restless, nervous, or anxious, or unable to sleep at night because yourmind is troubled all the time - these days?Only a lmbrmc8505/13/2024Exercise Vital SignAnswerDate Recorded On average, how many [...] steady place to sleep or slept in [place] (including now)?No11/10/2022Housing Stability Vital SignAnswerDate RecordedIn the last 12 months, was there a time when you were not able to pay the mortgage or rent on time?No05/13/2024In the past 12 months, how many times have you moved where you were living? At any time in the past 12 months, were you homeless or living in a assisted (including now)?No05/13/2024CommentsYesSex and Gender InformationValue Date RecordedSex Assigned at KkuowEojlqb76/23/2023 8:35 AM EDTLegal SexFemale 07/27/2022 6:45 PM EDTGender BnnipuhiSgdmlk35/23/2023 8:35 AM EDTSexual OrientationNot on filedocumented as of this encounter Plan of Treatment DateTypeDepartmentCare Team (Latest Contact Info)Zbguiubposa29/30/2025 12:00 PM ESTOffice Visit [facility] [address] [place] [address] Zulema Hall NP [address] [place] [address] documented as of this encounter Visit Diagnoses Not on filedocumented in this encounter Care Teams Team MemberRelationshipSpecialtyStart DateEnd Date Stacey Pulido MD [address] [place], [place] [phone] PCP - GeneralF[facility]11/10/22 Zulema Hall NP [address] [place], [place] [phone] [facility]11/10/22documented as of this encounter
--- OUTSIDE RECORDS SUMMARY | 2025-03-18 08:50 | XMS_ITS | Clinical Summary ---
Author Organization [facility] Address [address] [place] [address] Care Team Providers Care Roofer Applicator Name Role Phone Stacey Pulido MD Primary Care Provider [phone] Zulema Hall NP Unavailable [phone] Allergies Active AllergyReactionsCriticalityNoted DateCommentsBacitracin-Polymyxin B Bcbfcja1505/19/2023Sulfamethoxazole-NvnoeymxxqtrXenwLim85/10/2023ephalexinHives, FuisDvr8312/20/2022olloidal Bvkqcdc7609/21/20223909Yukpqbjzrov45/10/2023Hydrocortisone 09/21/2022 Medications MedicationSigDispense QuantityRefillsLast FilledStart DateEnd DateStatus cetirizine (ZyrTEC) 10 MG tablet Take 10 mg by mouth in the morning.Active MV-Min-Fe Fum-FA-DHA ( 1 PO) Take by mouth.Active Fluticasone Propionate (FLONASE ALLERGY RELIEF NA) 3Active BABY ASPIRIN PO 5Active labetalol (Normodyne) 100 MG tablet Indications:Benign hypertensionTAKE 1 TABLET BY MOUTH IN THE MORNING AND 1 AT BEDTIME 180 tablet 5Active Active Problems ProblemNoted DateDiagnosed DateTonsillar lsjevopmcyn19/30/2023lass 2 obesity without serious comorbidity with body mass index (BMI) of 37.0 to 37.9 in adult 11/11/2022enign vvbdlpzksefa75/10/2023Environmental acqefoaxu13/10/2023Food kafigbz2309/21/2022Mixed ajytswoylodrid67/10/2023Flexural eylvtz5109/21/2022 Resolved Problems ProblemNoted DateDiagnosed DateResolved IqykLlycnfngwric14 Encounters DateTypeDepartmentCare DbhmGjtpgydlrrj77/31/2025Patient Outreach [place] [address] [place] [phone] Leonela Kirkland LPN 03/10/2025Results Follow-Up [facility] Family Medicine [facility] [place] [phone] Zulema Hall NP [facility] CMP (CMP) (FOR [facility] USE), ALL URIC ACID, MHPT UNBZBTCCME14/26/2025 Clinisync Result Encounter [facility] External Department Unsolicited Kaitlin Landon CNM 03/07/2025 2:30 PM EDTAncillary Procedure [facility] Imaging [facility] [facility] [address] [place] [phone] Benign hypertension; Advanced maternal age, 1st , third trimester ([facility])03/07/2025Travel 03/06/2025 3:30 PM EDTRoutine [facility] OBGYN [address] [place] [phone] Kaitlin Landon CNM NST (non-stress test) reactive ([facility]) (Primary Dx); Benign hypertension; Encounter for care of first , third trimester ([facility]) 03/06/2025amboo flowsheet [facility] OBGYN [address] [place] [address] Kaitlin Landon CNM 03/04/2025 2:30 PM EDTRoutine [facility] OBGYN [address] [place] [phone] Kaitlin Landon CNM 5Bambmateo flowsheet [facility] OBGYN [address] [place] [phone] Kaitlin Landon CNM 03/03/20250670Xhebpz10/17/2025 2:30 PM EDTAncillary Procedure [facility] Imaging [address] [facility] [address] [place] [phone] Benign hypertension; Advanced maternal age, 1st , third trimester ([facility])02/28/2025Travel 02/27/2025Results Follow-Up [facility] Family Medicine [address] [place] [phone] Stacey Pulido MD CULTURE, GROUP B STREP WITH JNUSVVZOUUVUH91/16/6471Mqslbk29/14/2025Results Follow-Up [facility] OBGYN [address] [place] [phone] Kaitlin Landon CNM US biophysical profile wo non stress testing, US biophysical profile wo non stress testing, US OB follow up transabdominal bhganlay41/13/2025 1:30 PM EDTRoutine [facility] [address] [place] [phone] Kaitlin Landon CNM NST (non-stress test) reactive ([facility]) (Primary Dx); screening for streptococcus B ([facility]); 35 weeks gestation of ([facility]); Encounter for immunization; Advanced maternal age, 1st , third trimester ([facility]); Benign hypertension; Encounter for care of first , third trimester ([facility]) 02/24/2025amboo flowsheet [facility] [place] [facility] [address] [place] [phone] Kaitlin Landon CNM 02/21/2025 2:30 PM EDTAncillary Procedure [facility] [place] Imaging [address] [facility] [address] [place] [phone] Benign hypertension; Advanced maternal age, 1st , third trimester ([facility])02/21/2025Travel 02/17/20259012Bccmpl16/03/2025 2:30 PM EDTAncillary Procedure [facility] Imaging [address] [phone] Benign hypertension; Advanced maternal age, 1st , third trimester ([facility])02/14/2025Travel 02/13/20250355Nknniq70/30/2025 2:00 PM EDTRoutine [facility] OBG[facility] [address] [facility] [place] [phone] Kaitlin Landon CNM 02/11/2025[facility] flow[facility] [address] [facility] [place] [address] Kaitlin Landon CNM 02/06/20254511Ymzqoi10/24/2025 2:30 PM EDTRoutine [facility] O[facility] [address] [place] [phone] Kaitlin Landon CNM NST (non-stress test) reactive ([facility]) (Primary Dx); examination or test, positive result ([facility]); Benign hypertension ; Advanced maternal age, 1st , third trimester ([facility])02/05/2025[facility] flowsheet [facility] [address] [facility] [place] [phone] Kaitlin Landon CNM 02/02/20254541Pxupdr94/02/2025 3:30 PM EDTRoutine JOSE Quezada OBGYN [address] [place] [phone] Kaitlin Landon CNM Encounter for care of first , second trimester ([facility]) (Primary Dx)01/14/2025[facility] flowsheet [facility] O[facility] [address] [place] [phone] Kaitlin Landon CNM 01/09/20257849Mwawzd17/24/2025Refill [facility] [place] [facility] [address] [place] [address] Zulema Hall NP Benign iwtkexkuewmv10/19/2025Results Follow-Up [facility] [place] [phone] Stacey Bell MA GLUCOSE TOLERANCE TEST, GESTATIONAL,4SPEC(100G)12/23/2024Orders Only [facility] [place] [address] [place] [phone] Kaitlin Landon CNM Elevated random blood glucose level (Primary Dx)12/23/2024Telephone [facility] Family Medicine [address] [place] [phone] Kaitlin Landon CNM 12/18/2024 1:00 PM EDTRoutine [facility] Dam[address] [phone] Kaitlin Landon CNM Encounter for care of first , second trimester ([facility]) (Primary Dx); Screening for diabetes mellitus (DM); Essential hypertension affecting in second trimester ([facility]) 12/18/2024amboo flowsheet [facility] KULKARNI [address] [place] [phone] Kaitlin Landon CNM 12/18/2024Travelfrom Last 3 Months Immunizations ImmunizationAdministration DatesNext DueInfluenza, injectable, quadrivalent, preservative free02/24/2025Influenza, seasonal, gbaevncebs30/20/2020Pfizer Purple Cap SARS-CoV-2 Ynczvupdbtc46/03/2021,08/29/2020,08/06/2020Tdap1, 11/27/2020,12/13/2010 Family History Medical HistoryRelationNameCommentsNo Known ProblemsBrotherHypertensionFather VjjnjwfcAqhiUqprguHhsfpmieSiplhxt8GiufzlFdohdDqpmubJnnkf Social History Tobacco UseTypesPacks/DayYears UsedDateSmoking Tobacco: NeverSmokeless Tobacco: Never Tobacco Cessation:Counseling Given: Not Answered Alcohol UseStandard Drinks/WeekCommentsNot Currently0 (1 standard drink = 0.6 oz pure alcohol)1 cups of soda per ofvM3942 Health LiteracyAnswerDate RecordedHow often do you need to have someone help you when you read instructions, pamphlets, or other written material from your doctor or pharmacy?Never 05/13/2024Humiliation, Afraid, Rape, and Kick questionnaireAnswerDate Recorded Within the last year, have you been afraid of your partner or ex-partner?No 11/10/2022Within the last year, have you been humiliated or emotionally abused in other ways by your partner or ex-partner?No11/10/2022Within the last year, have you been kicked, hit, slapped, or otherwise physically hurt by your partner or ex-partner?No11/10/2022Within the last year, have you been raped or forced to have any kind of sexual activity by your partner or ex-partner?No11/10/2022 Social Connection and Isolation PanelAnswerDate RecordedIn a typical week, how many times do you talk on the phone with family, friends, or neighbors?More than three times a week05/13/2024How often do you get together with friends or relatives?Once a week05/13/2024How often do you attend roman catholic or anabaptism services?More than 4 times per year05/13/2024o you belong to any clubs or organizations such as roman catholic groups, unions, fraternal or athletic groups, or school groups?No05/13/2024How often do you attend meetings of the clubs or organizations you belong to?Never05/13/2024re you , , , , never , or living with a partner?Ojvrkep9405/13/2024UDIT-C AnswerDate RecordedQ1: How often do you have a drink containing alcohol?2-4 times a month05/13/2024Q2: How many drinks containing alcohol do you have on a typical day when you are drinking?3 or Q3: How often do you have six or more drinks on one occasion?Less than tliwfcc4005/13/2024Overall Financial Resource Strain (CARDIA)AnswerDate RecordedHow hard is it for you to pay for the very basics like food, housing, medical care, and heating?Not very hard 05/13/2024HQ-2AnswerDate RecordedPatient Health Questionnaire-2 Score0 03/14/2025[facility] [place] [facility] Occup[facility] - Occupational Stress QuestionnaireAnswerDate RecordedDo you feel stress - tense, restless, nervous, or anxious, or unable to sleep at night because yourmind is troubled all the time - these days?Only a jwzxel6705/13/2024Exercise Vital SignAnswerDate Recorded On average, how many [...] steady place to sleep or slept in ashelter (including now)?No11/10/2022Housing Stability Vital SignAnswerDate RecordedIn the last 12 months, was there a time when you were not able to pay the mortgage or rent on time?No05/13/2024In the past 12 months, how many times have you moved where you were living? At any time in the past 12 months, were you homeless or living in a retirement (including now)?No4CommentsNoSex and Gender InformationValue Date RecordedSex Assigned at MbourIeyaaz33/23/2023 8:35 AM EDTLegal SexFemale 07/27/2022 6:45 PM EDTGender ViwpufovZlsgaj11/23/2023 8:35 AM EDTSexual OrientationNot on file Last Filed Vital Signs Vital SignReadingTime TakenCommentsBlood Iagsdwka907/9010 3:35 PM EDT Iwtia182711/11/2024 2:57 PM LGFAcitokuvmfj73.8 ??C (96.4 ??F)11/11/2022 8:10 AM EDTRespiratory Rate--Oxygen Tkribrndax78%11/11/2024 2:57 PM EDTInhaled Oxygen Concentration--Uykatl239 kg (252 lb)03/06/2025 3:35 PM URDAdwtzu868 cm (5' 5.75 )05/13/2024 4:23 PM ESTBody Mass Index40.9805/13/2024 4:23 PM EST Plan of Treatment DateTypeDepartmentCare Team (Latest Contact Info)Ojwwumsscbg43/30/2025 12:00 PM ESTOffice Visit [facility] [address] [place] [address] Zulema Hall NP [address] [place], [place] [phone] Health MaintenanceDue DateLast DoneCommentsMMR Vaccines (1 of 1 - Standard series)08/02/1988Varicella Vaccines (1 of 2 - 13+ 2-dose series)08/02/2000 Hepatitis B Vaccines (1 of 3 - 19+ 3-dose series)08/02/2006HPV Vaccines (1 - 3- dose SCDM series)08/02/2014COVID-19 Vaccine ( season)2025 04/16/2021, 08/29/2020, 1Pap Smear71, 11/29/2013 Cervical Cancer Lkfggjvba62/15/2028HPV/Rrapud20, 07/31/2019 DTaP/Tdap/Td Vaccines (4 - Td or Tdap)51, 11/27/2020, 12/13/2010Influenza LitnohnSqgwgxsgr88/13/2025, 04/03/2020HIB VaccinesAged OutNo longer eligible based on patient's age to complete this topicHepatitis A VaccinesAged OutNo longer eligible based on patient's age to complete this topic IPV VaccinesAged OutNo longer eligible based on patient's age to complete this topicMeningococcal B VaccineAged OutNo longer eligible based on patient's age to complete this topicMeningococcal VaccineAged OutNo longer eligible based on patient's age to complete this topicPneumococcal Vaccine: Pediatrics (0 to 5 Years) and At-Risk Patients (6 to 64 Years)Aged OutNo longer eligible based on patient's age to complete this topicRotavirus VaccinesAged OutNo longer eligible based on patient's age to complete this topic Procedures Procedure NamePriorityDate/TimeAssociated DiagnosisCommentsMHPT FIBRINOGEN Gcyxfed3203/09/2025 8:30 PM EDT [facility] SEGMYcyudfw07/26/2025 8:30 PM EDT SRMCOH PROTHROMBIN TIME INR W/O PHQRRedbhcn23/26/2025 8:30 PM EDT ALL URIC ZTROLjtahot25/26/2025 8:30 PM EDT [facility] CMP (CMP) (FOR [facility] USE)Hfnvsds1803/09/2025 8:30 PM EDT TBH URINE T PROTEIN CREAT DAWHYYebvsck39/26/2025 6:05 PM EDT TB DRUG SCREEN RAPID (URINE)Lfyajan3303/09/2025 6:05 PM EDT HMHP CBC WITH PLATELET NO YRMZJRVIVMVJKncnsgv06/26/2025 5:40 PM EDT US OB FOLLOW UP TRANSABDOMINAL TKIWYNNLAbsiklf49/24/2025 3:15 PM EDT Benign hypertension Advanced maternal age, 1st , third trimester ([facility]) US BIOPHYSICAL PROFILE WO NON STRESS RHTFUENZhaguwm75/17/2025 2:49 PM EDT Benign hypertension Advanced maternal age, 1st , third trimester ([facility]) CULTURE, GROUP B STREP WITH NILUZDTJPYHVASdaxzuk37/13/2025 4:27 PM EDT screening for streptococcus B ([facility]) US BIOPHYSICAL PROFILE WO NON STRESS HBGDDJTCbrhajj25/10/2025 2:58 PM EDT Benign hypertension Advanced maternal age, 1st , third trimester ([facility]) US BIOPHYSICAL PROFILE WO NON STRESS ZVHWLRMMboenuj35/03/2025 3:01 PM EDT Benign hypertension Advanced maternal age, 1st , third trimester ([facility]) PROTEIN / CREATININE RATIO, AZAMCPgbpeux55/18/2025 8:16 AM EDT Essential hypertension affecting in second trimester ([facility]) GLUCOSE TOLERANCE TEST, GESTATIONAL,4SPEC(100G)Koahsbo3512/30/2024 8:02 AM EDT GLUCOSE, GESTATIONAL SCREEN (50G)-135 OUMCKOPwzlwvi00/06/2025 2:01 PM EDT Screening for diabetes mellitus (DM) WXTVmvaniq08/06/2025 2:01 PM EDT Screening for iron deficiency anemia COMPREHENSIVE METABOLIC FBKMGViqzeth95/06/2025 2:01 PM EDT Essential hypertension affecting in second trimester ([facility]) THINPREP IMAGING PAP AND HPV DNA REFLEX HPV 16,55Uurhyqk28/23/2024 3:23 PM EDT Screening for cervical cancer THINPREP PAP AND HPV MRNA E6/E7 W/RFL HPV 16,18/05Nqrkfbm98/15/2023 4:43 PM EDT Screening for cervical cancer from Last 3 Months or Most Recently Relevant to Health Maintenance Results * SRMCOH PROTHROMBIN TIME INR W/O COUM [...] 03/09/2025 9:11 PM EDT Authorizing ProviderResult TypeResult StatusValewellspan surgery & rehabilitation hospital [facility]own HospitalLINISYNCFinal ResultPerforming OrganizationAddressCity/State/ZIP CodePhone Number [facility] * (ABNORMAL) MHPT FIBRINOGEN (03/09/2025 8:30 PM EDT)ComponentValueRef RangeTest MethodAnalysis TimePerformed AtPathologist RqoijpzgbAXGOJUJRCF789(H)200 - 400 mg/dLTBHSpecimen (Source)Anatomical Location / LateralityCollection Method / VolumeCollection TimeReceived Time03/09/2025 8:30 PM EDT1 8:46 PM EDT Narrative CLINISYNC - 03/09/2025 9:11 PM EDT Authorizing ProviderResult TypeResult StatusSaint Francis Medical CenterLINISYNCFinal ResultPerforming OrganizationAddressCity/State/ZIP CodePhone Number [facility]INIS[facility]NC [facility] * (ABNORMAL) [facility] CMP (CMP) (FOR [facility]OTE [facility] USE) (03/09/2025 8:30 PM EDT) ComponentValueRef RangeTest MethodAnalysis TimePerformed AtPathologist AhzvnhfgaGPPYOX918529 - 145 mmol/LTBHPOTASSIUM3.63.5 - 5.1 mmol/LTBHCHLORIDE 70737 - 107 mmol/LTBHCARBON POZBIEE24.021.0 - 32.0 mmol/LTBHANION GAP12.6TBH DBQCNIO0258 - 106 mg/dLTBHBLOOD UREA NITROGEN6.0(L)7.0 - 18.0 mg/dLTBH CREATININE0.570.55 - 1.02 mg/dLTBHTBH EGFR-AF SOUTH AFRICAN>60>=60 mL/min/1.73m 2 TBHTBH EGFR-NON AF SOUTH AFRICAN>60>=60 mL/min/1.73m 2TBHBUN CREATININE RATIO10.5 TBHCALCIUM9.58.5 - 10.1 mg/dLTBHBILIRUBIN TOTAL0.20.2 - 1.0 mg/dLTBHASPARTATE AMINO CMKJFERQYUJ8645 - 37 U/LTBHALANINE NMCCTJCAXBTIQUXB8241 - 59 U/LTBH ALKALINE TXVCIIFSVUY811(H)46 - 116 U/LTBHTOTAL PROTEIN6.46.4 - 8.2 g/dLTBH ALBUMIN LEVEL2.3(L)3.4 - 5.0 g/dLTBHGLOBULIN4.1g/dLTBHALBUMIN GLOBULIN RATIO 0.6TBHSpecimen (Source)Anatomical Location / LateralityCollection Method / VolumeCollection TimeReceived Time03/09/2025 8:30 PM EDT1 8:46 PM EDT Narrative CLINISYNC - 03/09/2025 9:04 PM EDT Authorizing ProviderResult TypeResult StatusValerie Orion PerdomoLifecare Hospital of MechanicsburgLINISYNCFinal ResultPerforming OrganizationAddressCity/State/ZIP CodePhone Number [facility] MICHIGANISYNC [facility] * [facility]CF APTT (03/09/2025 8:30 PM EDT)ComponentValueRef RangeTest MethodAnalysis TimePerformed AtPathologist SignaturePARTIAL THROMBOPLASTIN TIME28.222.3 - 36.2 secTBHSpecimen (Source)Anatomical Location / LateralityCollection Method / VolumeCollection TimeReceived Time03/09/2025 8:30 PM EDT1 8:46 PM EDT Narrative CLINISYNC - 03/09/2025 9:11 PM EDT Authorizing ProviderResult TypeResult [facility] HospitalLINISYNCFinal ResultPerforming OrganizationAddNazareth Hospitalty/State/ZIP CodePhone Number [facility] * (ABNORMAL) ALL URIC ACID (03/09/2025 8:30 PM EDT)ComponentValueRef RangeTest MethodAnalysis TimePerformed AtPathologist SignatureURIC ACID6.1(H)2.6 - 6.0 mg/dLTBHSpecimen (Source)Anatomical Location / LateralityCollection Method / VolumeCollection TimeReceived Time03/09/2025 8:30 PM EDT1 8:46 PM EDT Narrative [facility] - 03/09/2025 9:04 PM EDT Authorizing ProviderResult TypeResult [facility] HospitalISYNCOur Lady Of Lourdes Memorial Hospitalal ResultPerforming OrganizationAddressty/State/ZIP CodePhone Number [facility] * TBH URINE T PROTEIN CREAT RATIO (03/09/2025 6:05 PM EDT)ComponentValueRef RangeTest MethodAnalysis TimePerformed AtPathologist SignatureTOTAL PROTEIN URINE RANDOM<6.0<=11.9 mg/dLTBHCREATININE URINE JKWEFZ430.7420.00 - 300.00 mg/dLTBHPROTEIN CREATININE RATIO URINE0.06TBHSpecimen (Source)Anatomical Location / LateralityCollection Method / VolumeCollection TimeReceived Time 03/09/2025 6:05 PM EDT1 7:22 PM EDT Narrative CLINISYKS - 03/09/2025 7:45 PM EDT Authorizing ProviderResult TypeResult [facility] HospitalISYScheurer Hospitalal ResultPerforming OrganizationAddNazareth Hospitalty/State/ZIP CodePhone Number [facility] * TBH DRUG SCREEN RAPID (URINE) (03/09/2025 [...] 03/09/2025 7:36 PM EDT Authorizing ProviderResult TypeResult StatusValerie Orion Landon FORMERLY [facility] HOSPITALLINISYNCFinal ResultPerforming OrganizationAddressCity/State/ZIP CodePhone Number [facility] * [facility] CBC WITH PLATELET NO DIFFERENTIAL (03/09/2025 5:40 PM EDT)ComponentValue Ref RangeTest MethodAnalysis TimePerformed AtPathologist SignatureTBH WBC11.0 4.0 - 11.0 10 3/uLTBHTBH RBC4.214.20 - 5.40 10 6/uLTBHTBH HGB13.712.0 - 16.0 g/dLTBHTBH HCT39.136.0 - 48.0 %TBHTBH MCV92.981.0 - 99.0 fLTBHTBH MCH32.526.7 - 34.0 pgTBHTBH MCHC35.029.9 - 35.2 g/dLTBHTBH RDW13.211.0 - 15.0 %TBHTBH PLT 364640 - 450 10 3/uLTBHTBH MPV12.29.5 - 13.5 fLTBHSpecimen (Source)Anatomical Location / LateralityCollection Method / VolumeCollection TimeReceived Time 03/09/2025 5:40 PM EDT1 5:48 PM EDT Narrative MICK[facility] - 03/09/2025 5:48 PM EDT Authorizing ProviderResult TypeResult StatusKaitlin Landon FORMERLY [facility] HOSPITALLINISYNCFinal ResultPerforming OrganizationAddressCity/State/ZIP CodePhone Number [facility] * OB follow up transabdominal approach (03/07/2025 3:15 [...] Hirsch MD Authorizing ProviderResult TypeResult StatusValefrank Landon CNMERIT HEALTH RIVER [facility]AKS OB US PROCEDURESFinal Result * US biophysical profile wo non stress testing (02/28/2025 2:49 PM EDT) Only the most recent of3 resultswithin the time period is included. Anatomical RegionLateralityModalityBodyUltrasoundSpecimen (Source)Anatomical Location / LateralityCollection Method / VolumeCollection TimeReceived Time 03/03/2025 2:03 PM EDT Impressions 03/04/2025 7:40 AM EDT Posterior placenta and normal biophysical profile. TRANSCRIBED BY: ? ELECTRONICALLY SIGNED BY: Francois Hirsch MD Narrative 03/04/2025 7:40 AM EDT FINDINGS: ?? Breathing Movements ??2 ??Gross Body Movements ? 2 ?? Tone ?2 Qualitative amniotic fluid volume ??2 A single, viable intrauterine is present. ??Cephalic presentation. The placenta is posterior fundal, Grade I. ??IZABEL 15 cm. ?? heart rate 145 bpm. ??Closed cervix, 5.4 cm length ? Procedure Note Francois Hirsch MD - 03/04/2025 FINDINGS: Breathing Movements 2 Gross Body Movements 2 Tone 2 Qualitative amniotic fluid volume 2 A single, viable intrauterine is present. Cephalicpresentation. The placenta is posterior fundal, Grade I. IZABEL 15 cm. heart rate 145 bpm. Closed cervix, 5.4 cm length IMPRESSION: Posterior placenta and normal biophysical profile. TRANSCRIBED BY: ELECTRONICALLY SIGNED BY: Francois Hirsch MD Authorizing ProviderResult TypeResult StatusValefrank Landon [facility] PROCEDURESFinal Result * (ABNORMAL) CULTURE, GROUP B STREP WITH SUSCEPTIBLITY (02/24/2025 4:27 PM EDT) ComponentValueRef RangeTest MethodAnalysis TimePerformed AtPathologist SignatureMICRO [id number] QUALITYAdequateQUESTSOURCE VAGINAL/ANORECTALQUESTSTATUSFINALQUESTISOLATE 1SEE NOTE(A)QUESTComment: Group B Streptococcus isolated Erythromycin testing indicates that testing for inducible clindamycin resistance is not required for this isolate. COMMENTSEE NOTEQUESTComment: Note per CDC guidelines optimal recovery is achieved by swabbing both the lower vagina and rectum (through the anal sphincter). ?Group B Strep ?[place] AMPICILLIN S <=0.25 CEFOTAXIME S <=0.12 CEFTRIAXONE S <=0.12 CLINDAMYCIN S <=0.25 LEVOFLOXACIN ? S ?? 0.5 VANCOMYCIN ? S ?? 0.25 Legend: S = Susceptible ??I = Intermediate R = Resistant ??NS = Not susceptible SDD = Susceptible Dose Dependent * = Not Tested ??NR = Not Reported NN = See Therapy Comments Specimen (Source)Anatomical Location / LateralityCollection Method / Volume Collection TimeReceived Time02/24/2025 4:27 PM EDT1 4:28 PM EDT Narrative Resulting Agency Comment Performing Organization Information ?Site ID: QPT ?Name: [facility] ?Address: [address] [place] [address], [address] [place] [phone] ?Director: Sumeet Pickett MD Authorizing ProviderResult TypeResult StatusValerigopi Landon CNMLAB BLOOD ORDERABLESFinal ResultPerforming OrganizationAddressCity/[facility]/ZIP CodePhone Number [facility] * Protein / creatinine ratio, urine (12/30/2024 8:16 AM EDT)ComponentValueRef RangeTest MethodAnalysis TimePerformed AtPathologist SignatureCREATININE, RANDOM HMPFG6852 - 275 mg/dLQUESTPROTEIN/CREATININE FMWDR4903 - 184 mg/g creat QUESTPROTEIN/CREATININE RATIO0.0990.024 - 0.184 mg/mg creatQUESTPROTEIN, TOTAL, RANDOM UR75 - 24 mg/dLQUESTSpecimen (Source)Anatomical Location / LateralityCollection Method / VolumeCollection TimeReceived TimeUrineUrine specimen obtained by clean catch procedure / Hchgxpy5412/30/2024 8:16 AM EDT 12/30/2024 4:27 PM EDT Narrative Resulting Agency Comment Performing Organization Information ?Site ID: QPT ?Name: [facility] ?Address: [address] [place] [address], [address] [place] [phone] ?Director: Sumeet Pickett MD Authorizing ProviderResult TypeResult StatusKaitlin Perdomoo CNMLAB URINE ORDERABLESFinal ResultPerforming OrganizationAddressty/State/[facility] PeachPhone Number [facility] * GLUCOSE TOLERANCE TEST, GESTATIONAL,4SPEC(100G) (12/30/2024 8:02 AM EDT) ComponentValueRef RangeTest MethodAnalysis TimePerformed AtPathologist SignatureGLUCOSE, [id number] - 94 mg/dLQUESTGLUCOSE, 1 JMZE620<180 mg/dLQUEST GLUCOSE, 2 PRZA498<155 mg/dLQUESTGLUCOSE, 3 BABH882<140 mg/dLQUESTCOMMENTQUEST Comment: ?? Morejon/Coustan Criteria: Two or more values greater than the above reference intervals are suggestive of gestational diabetes. Specimen (Source)Anatomical Location / LateralityCollection Method / Volume Collection TimeReceived Time12/30/2024 8:02 AM EDT12/30/2024 8:03 AM EDT Narrative Resulting Agency Comment Performing Organization Information ?Site ID: QPT ?Name: [facility] ?Address: [address] [place] [address], [address] [place] [phone] ?Director: Sumeet Pickett MD Authorizing ProviderResult TypeResult StatusValerigopi Perdomoo CNMLAB BLOOD ORDERABLESFinal ResultPerforming OrganizationAddressCity/State/[facility] CodePhone Number [facility] * (ABNORMAL) GLUCOSE, GESTATIONAL SCREEN (50G)-135 CUTOFF (12/18/2024 2:01 PM EDT)ComponentValueRef RangeTest MethodAnalysis TimePerformed AtPathologist SignatureGLUCOSE, GESTATIONAL SCREEN (50G)-135 PBJBIR232(H)<135 mg/dLQUEST Comment: One hour value of > or = 135 mg/dL indicates the need for a diagnostic 75 g dose 2-hour or 100 g dose 3-hour oral glucose tolerance test; patient fasting is required. Specimen (Source)Anatomical Location / LateralityCollection Method / Volume Collection TimeReceived Time12/18/2024 2:01 PM EDT12/18/2024 2:01 PM EDT Narrative [facility] - 12/19/2024 4:29 AM EDT COLLECTION KIT GIVEN TO PATIENT. PATIENT ADVISED TO RETURN. Resulting Agency Comment Performing Organization Information ?Site ID: QPT ?Name: [facility] ?Address: [facility] , [address] [place] [phone] ?Director: Sumeet Pickett MD Authorizing ProviderResult TypeResult StatusValerigopi Landon [facility] BLOOD ORDERABLESFinal ResultPerforming OrganizationAddressCity/State/ZIP CodePhone Number [facility] * (ABNORMAL) CBC (12/18/2024 2:01 PM EDT)ComponentValueRef RangeTest Method Analysis TimePerformed AtPathologist SignatureWHITE BLOOD CELL COUNT11.7(H)3.8 - 10.8 Thousand/uLQUESTRED BLOOD CELL COUNT3.843.80 - 5.10 Million/uLQUEST EZCPZVKMIV96.611.7 - 15.5 g/kNDZERLIYUILUKVRJ12.235.0 - 45.0 %YRORPPSI10.980.0 - 100.0 oGRAPDQKMM31.827.0 - 33.0 ppNVOVKGJGY38.932.0 - 36.0 g/dLQUESTComment: For adults, a slight decrease in the calculated MCHC value (in the range of 30 to 32 g/dL) is most likely not clinically significant; however, it should be interpreted with caution in correlation with other red cell parameters and the patient's clinical condition. RDW13.111.0 - 15.0 %QUESTPLATELET PIYPF394757 - 400 Thousand/wDREFIFTGU81.97.5 - 12.5 fLQUESTSpecimen (Source)Anatomical Location / LateralityCollection Method / VolumeCollection TimeReceived TimeBloodVenous blood specimen / Updkeyo9312/18/2024 2:01 PM EDT12/18/2024 2:01 PM EDT Narrative [facility] - 12/19/2024 4:29 AM EDT COLLECTION KIT GIVEN TO PATIENT. PATIENT ADVISED TO RETURN. Resulting Agency Comment Performing Organization Information ?Site ID: QPT ?Name: [facility] ?Address: [facility] , [address] [place] [phone] ?Director: Sumeet Pickett MD Authorizing ProviderResult TypeResult StatusValefrank Landon CNMLAB BLOOD ORDERABLESFinal ResultPerforming OrganizationAddressCity/State/ZIP CodePhone Number [facility] * (ABNORMAL) Comprehensive metabolic panel (12/18/2024 2:01 PM EDT)Component ValueRef RangeTest MethodAnalysis TimePerformed AtPathologist SignatureGlucose 150(H)65 - 99 mg/dLQUESTComment: ? Fasting reference interval For someone without known diabetes, a glucose value >125 mg/dL indicates that they may have diabetes and this should be confirmed with a follow-up test. BUN4(L)7 - 25 mg/dLQUESTCreatinine0.45(L)0.50 - 0.97 mg/mAWPOELMGAL124> OR = 60 mL/min/1.10z8KWPIXLAY/CREATININE RATIO96 - 22 (calc)QKJEASdmphe627484 - 146 mmol/LQUESTPotassium, Bld3.63.5 - 5.3 mmol/CGEVRRLcdxybwi48670 - 110 mmol/LQUEST Carbon Zgxmdkt3748 - 32 mmol/LQUESTCalcium9.38.6 - 10.2 mg/dLQUESTPROTEIN, TOTAL 6.16.1 - 8.1 g/dLQUESTALBUMIN3.5(L)3.6 - 5.1 g/dLQUESTGLOBULIN2.61.9 - 3.7 g/dL (calc)QUESTALBUMIN/GLOBULIN RATIO1.31.0 - 2.5 (calc)QUESTBILIRUBIN, TOTAL0.30.2 - 1.2 mg/dLQUESTALKALINE ZPLXHBQTPIU1803 - 125 U/YQCCZITSF6274 - 30 U/LQUESTALT7 6 - 29 U/LQUESTSpecimen (Source)Anatomical Location / LateralityCollection Method / VolumeCollection TimeReceived TimeBloodVenous blood specimen / Unknown 12/18/2024 2:01 PM EDT12/18/2024 2:01 PM EDT Narrative [facility] - 12/19/2024 4:29 AM EDT COLLECTION KIT GIVEN TO PATIENT. PATIENT ADVISED TO RETURN. Resulting Agency Comment Performing Organization Information ?Site ID: QPT ?Name: [facility] ?Address: [address] [place] [phone] ?Director: Sumeet Pickett MD Authorizing ProviderResult TypeResult StatusValefrank Landon CNMLAB BLOOD ORDERABLESFinal ResultPerforming OrganizationAddressCity/State/ZIP CodePhone Number [facility] * THINPREP IMAGING PAP AND HPV DNA REFLEX HPV 16,18 (03/06/2024 3:23 PM EDT) ComponentValueRef RangeTest MethodAnalysis TimePerformed AtPathologist SignatureCLINICAL INFORMATIONQUESTComment:None givenLMPQUESTComment:NONE GIVEN PREV. PAPQUESTComment:NONE GIVENPREV. BXQUESTComment:NONE GIVENSOURCEQUEST Comment:None givenSTATEMENT OF ADEQUACYQUESTComment: Satisfactory for evaluation. Endocervical/transformation zone component present. INTERPRETATION/RESULTQUESTComment: Cytology Results: Negative for intraepithelial lesion or malignancy. COMMENTQUESTComment: This Pap test has been evaluated with computer assisted technology. CYTOTECHNOLOGISTQUESTComment: DAA, CT(ASCP) CT Screening Location: ??[place] [address] REVIEW CYTOTECHNOLOGISTQUESTComment: NNO, CT(ASCP) CT screening location: [place] [address]. (ALWAYS MESSAGE)QUESTComment: EXPLANATORY NOTE: The Pap is a screening test for cervical cancer. It is not a diagnostic test and is subject to false negative and false positive results. It is most reliable when a satisfactory sample, regularly obtained, is submitted with relevant clinical findings and history, and when the Pap result is evaluated along with historic and current clinical information. HPV DNA, HIGH RISK, CERVICALNot DetectedNOT DETECTEDQUESTComment: Not Detected High Risk HPV types (16,18,31,33,35,39,45,51,52, 56,58,59,66,68) were not detected. Other HPV types which cause anogenital lesions may be present. The significance of the other types of HPV in malignant processes has not been established. Methodology: Real Time PCR Specimen (Source)Anatomical Location / LateralityCollection Method / Volume Collection TimeReceived TimeSwabCervical swab / Dnwpzly4703/06/2024 3:23 PM EDT 03/07/2024 4:10 AM EDT Narrative Resulting Agency Comment Performing Organization Information ?Site ID: AMD ?Name: [facility] ?Address: [address] [place] [address] [address] [place] ?Director: Meng Mcconnell M.D.,PhD ?Site ID: [id number] ?Name: [facility] ?Address: [address] [place] [phone] ?Director: Sumeet Pickett MD Authorizing ProviderResult TypeResult StatusValerigopi Landon CNMLAB CYTOLOGY ORDERABLESFinal ResultPerforming OrganizationAddressCity/State/ZIP CodePhone Number [facility] * THINPREP PAP AND HPV MRNA E6/E7 W/RFL HPV 16,18/45 (12/27/2022 4:43 PM EDT) ComponentValueRef RangeTest MethodAnalysis TimePerformed AtPathologist SignatureCLINICAL INFORMATIONQUESTComment:None givenLMPQUESTComment:NONE GIVEN PREV. PAPQUESTComment:NONE GIVENPREV. BXQUESTComment:NONE GIVENSOURCEQUEST Comment:None givenSTATEMENT OF ADEQUACYQUESTComment: Satisfactory for evaluation. Endocervical/transformation zone component present. INTERPRETATION/RESULTQUESTComment: Cytology Results: Negative for intraepithelial lesion or malignancy. CYTOTECHNOLOGISTQUESTComment: DMK, CT(ASCP) CT screening location: [place] [address]. (ALWAYS MESSAGE)QUESTComment: EXPLANATORY NOTE: The Pap is a screening test for cervical cancer. It is not a diagnostic test and is subject to false negative and false positive results. It is most reliable when a satisfactory sample, regularly obtained, is submitted with relevant clinical findings and history, and when the Pap result is evaluated along with historic and current clinical information. HPV MRNA E6/E7Not DetectedNot DetectedQUESTComment: Methodology: Carpet Journeyman-Mediated Amplification This assay detects E6/E7 viral messenger RNA (mRNA) from 14 high-risk HPV types (16,18,31,33,35,39,45,51,52,56,58,59,66,68). Cervical sources are required for HPV testing. If a vaginal source from a patient who has had a total hysterectomy with removal of cervix was submitted, please contact the testing laboratory for alternative testing options. For additional information, please refer to http://education.[employer]/faq/KLL800t7 (This link if provided for information/ educational purposes only.) Specimen (Source)Anatomical Location / LateralityCollection Method / Volume Collection TimeReceived Time12/27/2022 4:43 PM EDT12/28/2022 5:01 AM EDT Narrative Resulting Agency Comment Performing Organization Information ?Site ID: [id number] ?Name: [facility] ?Address: [address] [place] [address], [address] [place] [phone] ?Director: Sumeet Pickett MD Authorizing ProviderResult TypeResult StatusValefrank Landon CNMLAB BLOOD ORDERABLESFinal ResultPerforming OrganizationAddressCity/State/ZIP CodePhone Number [facility] from Last 3 Months or Most Recently Relevant to Health Maintenance Insurance Care Teams Team MemberRelationshipSpecialtyStart DateEnd Stacey Pulido MD [address] [facility] [place] [address] PCP - GeneralFamily Medicine11/10/22 Zulema Hall NP [address] [facility] [place] [address] Nurse PractitionerFaSouthwell Medical Center11/10/22
--- NOTE | 2025-03-18 11:32 | PC.NURSE ---
Ritu and 7 day old Katerina arrive for follow up. Ritu states It's been quite a week Relates baby was seen at initial PCP visit and had elevated temp. Was sent to ER, and then life flighted to [facility] in [place]. Multiple tests, including Lumbar puncture with all tests returning negative. Baby had antibiotics and antivirals prophylactic. Sent home late Monday evening 03/16/2025. Mom maintained pumping routine through whole ordeal. States is pumping every 3-4 obtaining 60-80 ml. Baby feeding every 3 hours as hospital had her doing , taking 45-55 ml each feed. Mom ruben has wet and stool diaper with each feed. Katerina with [facility]VS nd assessment WNL. to breast with shield, slowly begins suck and becomes vigorous with swallows. Vigorous for 8 minutes and slows to sleep. Off breast and independently re-latches to next side. Nurses for 5 minutes. Discussed trying latching with shield 2-3 times daily. Will follow up with supplemental bottle to ensure adequate intake. Mom states confident in ability to work the plan. Ritu denies concerns for self. VSS except Blood pressure. BP146/95, 155/89 and 143/95 in 15 minute increments. Assessment WNL. Denies headache, visual disturbances or epigastric discomfort. No edema noted. Takes Labetalol daily as has HX of chronic hypertension. TC to Harpreet Landon and given assessment, and VS. Pt to increase Labetalol to 300mg TID, starting with next dose when gets home. To see Bandar in office 03/19/2025 1030. Verbalized understanding. Couplet to return 03/21/2025 1000 for weight check and progress assessment. Couplet home without complaints.
[2025-03-18 11:33] VITALS: BP 146/95; PULSE 77; TEMP 36.6; O2SAT 97
== END 2025-03-18 11:44 | disposition home or self-care (01) ==
LOC: FBCO 08:42
PROVIDERS: PCP Nurse Practitioner Family; Visit Provider Obstetrics & Gynecology
DX: Z39.1 Encounter for care and examination of lactating mother (principal)

== ENCOUNTER 2025-03-21 08:11 | Outpatient (OUT) | payer OTHER, SELFPAY | END 2025-03-21 10:35 | disposition home or self-care (01) | LOC: FBCO 08:12 | PROVIDERS: PCP Nurse Practitioner Family; Visit Provider Midwife | DX: Z39.1 Encounter for care and examination of lactating mother (principal) ==